=== PATIENT | female | born 1960 | race Caucasian/White ===

== ENCOUNTER 2016-06-30 13:32 | Emergency (ER) | payer OTHER ==
[2016-06-30 13:53] VITALS: BP 133/85
[2016-06-30] MEDS ORDERED: Metoclopramide 10 MG/2 ML SDV IM ONE (14:40)
[2016-06-30] MEDS ORDERED: HYDROmorphone 1 MG/ML Syringe IM ONE (14:40)
--- NOTE | 2016-06-30 14:47 | EDM.PDOC ---
ED HPI Trauma - General Chief Complaint: Lower Extremity Injury/Pain Stated Complaint: RIGHT KNEE INJURY Time Seen by Provider: 06/30/16 14:42 Source: Reports: Patient History Limitations: Reports: No limitations - History of Present Illness INITIAL COMMENTS - FREE TEXT/NARRATIVE: 56-year-old female brought to the ED by her . She states she was walking down stairs and went to move a small toy out of the way and slipped causing a sudden severe twisting injury to her right knee. This caused her to collapse to the rest of the stairs. She states she was able to walk on it a bit for about half an hour until the pain and swelling over came her. Pain is constant and throbbing rated 10 out of 10 at this time and she is no longer able to. This fracture of her right ankle but no injury to the knee that time. He suffered no other injuries from the fall. Symptom Onset Date: 06/30/16 Symptom Onset Time: 13:00 Occurred When: this afternoon Occurred Where: home Method of Injury: fall Severity: severe Pain/Injury Location: Reports: lower extremity, right (Right knee.) Consciousness: Reports: no loss of consciousness, remembers incident, remembers coming to hosp Associated Symptoms: Reports: no other symptoms Allergies/ADRs: Allergies amoxicillin Allergy (Verified 02/16/15 12:08) Anaphylactic Shock NSAIDS (Non-Steroidal Anti-Inflamma Allergy (Verified 02/16/15 12:08) Anaphylactic Shock amoxicillin trihydrate [From Augmentin] Adverse Reaction (Verified 06/30/16 13: 53) Vomiting potassium clavulanate [From Augmentin] Adverse Reaction (Verified 02/17/15 12:32 ) Vomiting Home Medications: Ambulatory Orders Acetaminophen [Tylenol Arthritis Pain] 650 mg PO BID 05/09/14 [Confirmed ] Albuterol [Ventolin HFA] 2 puff INH Q4H PRN 05/09/14 [Confirmed 02/17/15] Budesonide/Formoterol [Symbicort 160-4.5 MCG] 2 puff IH BID 05/09/14 [Confirmed 02/17/15] Estradiol/Norethindrone Acet [Combipatch 0.05-0.14 MG] 1 each TD ASDIRECTED [Confirmed 02/17/15] Hydrochlorothiazide 1 tab PO DAILY 05/09/14 [Confirmed 02/17/15] Losartan Potassium [Cozaar] 1 tab PO DAILY 05/09/14 [Confirmed 02/17/15] Omalizumab [Xolair] 1 dose SQ ASDIRECTED 05/09/14 [Confirmed 02/17/15] [place]-3 Fatty Acids [Fish Oil] 2 cap PO DAILY 05/09/14 [Confirmed 02/17/15] Omeprazole 1 cap PO DAILY 05/09/14 [Confirmed 02/17/15] Meloxicam 15 mg PO 12 #12 tablet 06/30/16 Polyethylene Glycol 3350 [MiraLAX] 17 gm PO DAILY #1 cont 06/30/16 oxyCODONE HCl/Acetaminophen [Percocet 5-325 mg Tablet] 1 - 2 each PO Q4H PRN # 30 tablet 06/30/16 Past Medical History Other HEENT History: wears glasses Cardiovascular History: Reports: Hypertension Respiratory History: Reports: Asthma - Past Surgical History Other HEENT Surgeries/Procedures: radial keratotomy Other Musculoskeletal Surgeries/Procedures:: orif R ankle with gar chau 05/11/14 ; R toe broken 09/2014 Social & Family History - Tobacco Use Smoking Status *Q: Never Smoker Second Hand Smoke Exposure: No - Alcohol Use Days Per Week of Alcohol Use: 0 Number of Drinks Per Day: 0 Total Drinks Per Week: 0 - Recreational Drug Use Recreational Drug Use: No Drug Use in Last 12 Months: No - Living Situation & Occupation Living situation: Reports: Occupation: employed Review of Systems - Review of Systems Review Of Systems: See Below Constitutional: Reports: no symptoms Eyes: Reports: no symptoms Ears: Reports: no symptoms Nose: Reports: no symptoms Mouth/Throat: Reports: no symptoms Respiratory: Reports: No Symptoms Cardiovascular: Reports: no symptoms GI/Abdominal: Reports: No symptoms Genitourinary: Reports: no symptoms Musculoskeletal: Reports: joint pain Skin: Reports: no symptoms (Severe pain in her right knee. Please see history of present illness) Neurological: Reports: No Symptoms Trauma Exam - Physical Exam Exam: See Below Exam Limited By: No limitations General Appearance: Reports: alert, moderate distress (In obvious pain and discomfort from right knee injury.) Head: Reports: atraumatic, normocephalic Neck: Reports: non-tender, full range of motion, normal alignment, normal inspection Cardiovascular: Reports: normal peripheral pulses, regular rate, rhythm, no edema, no gallop, no JVD, no murmur GI/Abdominal: Reports: normal bowel sounds, soft, non tender, no organomegaly Back: Reports: full range of motion, non-tender. Denies: CVA tenderness (R), CVA tenderness (L) Extremities: Reports: no evidence of injury, other (Patient has obvious swelling of her right knee particularly in the previous suprapatellar recess. It is a traumatic effusion evident mild to moderate. Marked tenderness along the lateral joint line and tenderness along the superior aspect of the mediocollateral ligament insertion site. She is able to straighten the leg and I cannot find a defect in the quadriceps tendon. 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, no motor/sensory deficits, alert , normal mood/affect ( limited by severe pain.) Skin: Reports: Normal color, Warm/dry - [place] Coma Score Best Eye Response (Ana Lilia): (4) open spontaneously Best Verbal Response ([place]): (5) oriented Best Motor Response ([place]): (6) obeys commands [place] Total: 15 Course - Vital Signs Last Recorded V/S: Last Vital Signs Temp 36.4 C 06/30/16 13:51 Pulse 90 06/30/16 13:51 Resp 18 06/30/16 13:51 BP 133/85 06/30/16 13:51 Pulse Ox 100 06/30/16 13:51 - Orders/Labs/Meds Orders: Active Orders 24 hr Category Date Time Status Knee Min 4V Rt [CR] Stat Exams 06/30/16 14:41 Taken Meds: Medications Discontinued Medications Generic Name Dose Route Start Last Admin Trade Name Freq PRN Reason Stop Dose Admin Hydromorphone HCl 1 mg 06/30/16 14:40 06/30/16 14:51 Dilaudid IM 06/30/16 14:41 1 mg ONETIME ONE Administration Metoclopramide HCl 10 mg 06/30/16 14:40 06/30/16 14:50 Reglan IM 06/30/16 14:41 10 mg ONETIME ONE Administration - Radiology Interpretation Free Text/Narrative:: A 6-year-old female with an acute injury to her right knee while walking downstairs. Violent twisting injury occurred causing her to fall with knee underneath her body weight. She was able to weight bear for short period of time after this on the right knee with a limp but over a period of half an hour the pain increased tenderness in the swelling. She currently is unable to flex it past 15 and cannot weight-bear at all. She came to the ED on crutches. Exam pain is localized to the joint line particularly laterally. Also to the superior insertion of the mediocollateral ligament. Unable to assess ligamentous laxity and the cruciates due to the severity the pain. She has a traumatic effusion with blood and fluid in the suprapatellar recess. Plan x-ray 4 view x-ray of the knee after she received IM analgesia plan is to give her 1 mg of Dilaudid and 10 mg of Reglan IM for pain relief. - Re-Assessments/Exams Free Text/Narrative Re-Assessment/Exam: 06/30/16 15:32 X-rays of the right knee did not reveal any tibial plateau fractures. There is mild medial joint degenerative changes. There is a small piece of bone off the lateral aspect of the femoral condyle of unclear etiology but it appears to be old. No evidence of quadriceps tendon tear on this x-ray. There is a small effusion in the suprapatelar recess. She has therefore suffered an internal derangement to the knee and at this time I cannot ascertain whether it's cruciate ligaments, medial meniscal or both. To painful to examine. Plan is to be placed in a long knee immobilizer . Be nonweightbearing crutch walking until she can follow up with Dr Gonzalez in clinic in a week to 10 days time. She will be placed on meloxicam 15 mg once daily for 10 days. Percocet 5 320 5M tablets every 24-6 hours needed for pain relief. Elevate and ice for the next 3 days. Departure - Departure Time of Disposition: 15:42 Disposition: Home, Self-Care 01 Condition: fair Clinical Impression: Internal derangement of right knee Prescriptions: Meloxicam 15 mg PO 12 #12 tablet Polyethylene Glycol 3350 [MiraLAX] 17 gm PO DAILY #1 cont oxyCODONE HCl/Acetaminophen [Percocet 5-325 mg Tablet] 1 - 2 each PO Q4H PRN # 30 tablet PRN Reason: pain relief. Instructions: Knee Effusion, [id number] Referrals: Rafal Wilkerson MD [Primary Care Provider] - Forms: ED Department Discharge, Return to Work/School Form Additional Instructions: Evaluation in the emergency room today in regards to acute injury to her right knee while walking downstairs today. Violent twisting injury appears to occur to the right knee causing her to fall. The knee is showing evidence of traumatic effusion or blood within the knee. X-rays of the knee did not reveal any bony fractures. Therefore internal derangement has occurred such as tear of the anterior posterior cruciate ligament and possibly the medial meniscus as well. He is too swollen and painful to examine properly at this time. Treatment is therefore of a long knee immobilize. Often moreover clothing and at nighttime as well as during the day. Nonweightbearing crutch walking until reviewed with Dr. Montiel in 7-10 days time. Please call [phone] on Saturday to arrange a follow up appointment. He was not able to work until the swelling settles down and you're able to bear weight. This will be a minimum of 10 days. I then MRI can be carried out in identify internal damage to the knee and with her nonsurgical management is required. In the meantime like to be elevated above the level heart as much possible. Ice pack across the knee for one half hour out of every 4 hours for the next 3 days. After that may apply heat to the area. Pain management to be meloxicam 15 mg once daily for the next 12 days. Percocet tabs 5 /325 one or 2 every 4-6 hours needed for pain relief. Suggest use of MiraLax powder 17 g one scoop daily to prevent constipation from the pain pills. - My Orders Last 24 Hours: My Active Orders 06/30/16 14:41 Knee Min 4V Rt [CR] Stat - Assessment/Plan Last 24 Hours: My Active Orders 06/30/16 14:41 Knee Min 4V Rt [CR] Stat
--- NOTE | 2016-07-02 07:59 | CR ---
Right knee: Four views of the right knee were obtained. Comparison: No previous study. Mild medial joint space narrowing is seen. Lateral joint space is preserved. No joint effusion is seen. No acute fracture or other abnormality is appreciated. Impression: 1. Mild medial joint space narrowing. 2. No acute bony abnormality is identified on right knee exam. Diagnostic code #2
== END 2016-06-30 16:00 | disposition home or self-care (01) ==
LOC: JD.ED 13:32
DX: M23.91 Unspecified internal derangement of right knee (principal); I10 Essential (primary) hypertension; J45.909 Unspecified asthma, uncomplicated; Z88.1 Allergy status to other antibiotic agents; Z88.8 Allergy status to other drugs, medicaments and biological substances; W01.0XXA Fall on same level from slipping, tripping and stumbling without subsequent striking against object, initial encounter; Y92.009 Unspecified place in unspecified non-institutional (private) residence as the place of occurrence of the external cause
CPT/HCPCS: 73564; 96372; 99283; J1170; J2765; 99284

== ENCOUNTER 2017-01-23 20:03 | Emergency (ER) | payer OTHER ==
[2017-01-23 20:14] VITALS: BP 150/79
[2017-01-23] MEDS ORDERED: HYDROmorphone 0.5 MG/0.5 ML Syringe IVPUSH ONE ×3 (20:39→21:46)
[2017-01-23] MEDS ORDERED: Sodium Chloride 0.9% 10 ML Syringe FLUSH PRN (20:39)
[2017-01-23] MEDS ORDERED: Ondansetron 4 MG/2 ML SDV IVPUSH ONE (20:39)
[2017-01-23] MEDS ORDERED: Sodium Chloride 0.9% 1,000 ML IV SCH ×2 (20:45→21:45)
--- NOTE | 2017-01-23 21:04 | EDM.PDOC ---
ED HPI GENERAL MEDICAL PROBLEM - General Chief Complaint: Abdominal Pain Stated Complaint: ABDOMINAL PAIN Time Seen by Provider: 01/23/17 20:14 Source of Information: Reports: Patient, RN Notes Reviewed - History of Present Illness INITIAL COMMENTS - FREE TEXT/NARRATIVE: 56-year-old lady comes in with fairly sudden onset of upper mid abdominal pain, cramping, diarrhea, nausea and vomiting. SHe has had multiple episodes of diarrhea this afternoon and multiple episodes of repetitive vomiting. She is still having quite severe abdominal cramping at this time. After vomiting the discomfort lessens and with time becomes more severe. She has been having chills today, no definite fever. Occasional mild radiation of discomfort to her back. She had some very mild nausea this past morning. No symptoms yesterday or during the night. She had chicken wings last evening along with her . He has had no sign of illness. Epigastric Pain Score (Numeric/FACES): 8 - Related Data Allergies Allergy/AdvReac Type Severity Reaction Status Date / Time amoxicillin Allergy Anaphylactic Verified 01/23/17 20:14 Shock NSAIDS (Non-Steroidal Allergy Anaphylactic Verified 01/23/17 20:14 Anti-Inflamma Shock amoxicillin trihydrate AdvReac Vomiting Verified 01/23/17 20:14 [From Augmentin] potassium clavulanate AdvReac Vomiting Verified 01/23/17 20:14 [From Augmentin] Home Meds: Home Meds Acetaminophen 500 mg PO Q6H PRN 01/23/17 [History] Cetirizine [ZyrTEC] 10 mg PO DAILY 01/23/17 [History] Estradiol/Norethindrone Acet [Combipatch 0.05-0.14 MG] 1 each TD ASDIRECTED 03/01 [History] Hydrochlorothiazide 12.5 mg PO DAILY 01/23/17 [History] Losartan [Cozaar] 50 mg PO DAILY 01/23/17 [History] Omeprazole 20 mg PO BIDAC 01/23/17 [History] Potassium Chloride 10 meq PO DAILY #30 tablet.er 01/24/17 [Rx] Past Medical History Other HEENT History: wears glasses Cardiovascular History: Reports: Hypertension Respiratory History: Reports: Asthma Gastrointestinal History: Reports: GERD Genitourinary History: Reports: Renal Calculus 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 , , 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 Musculoskeletal History: Reports: Other (See Below) Other Musculoskeletal History: chronic knee pain - Past Surgical History Other HEENT Surgeries/Procedures: radial keratotomy Respiratory Surgical History: Reports: None Female Surgical History: Reports: Tubal Ligation Musculoskeletal Surgical History: Reports: Other (See Below) Other Musculoskeletal Surgeries/Procedures:: orif R ankle with gar chau 05/11/14 ; R toe broken 09/2014 Social & Family History - Tobacco Use Smoking Status *Q: Never Smoker Second Hand Smoke Exposure: No - Caffeine Use Caffeine Use: Reports: None - Alcohol Use Days Per Week of Alcohol Use: 0 Number of Drinks Per Day: 0 Total Drinks Per Week: 0 - Recreational Drug Use Recreational Drug Use: No Drug Use in Last 12 Months: No - Living Situation & Occupation Living situation: Reports: Occupation: Employed ED ROS GENERAL - Review of Systems Review Of Systems: See Below Constitutional: Denies: Fever, Chills, Diaphoresis Respiratory: Denies: Shortness of Breath, Pleuritic Chest Pain, Cough Cardiovascular: Denies: Chest Pain GI/Abdominal: Reports: Abdominal Pain (Quite severe upper and mid abdominal cramping), Diarrhea (About 8 episodes of diarrhea this past afternoon and early evening), Nausea ( with some radiation of discomfort to her back), Vomiting ( severe repetitive ) Musculoskeletal: Reports: Other (Generalized achiness) Skin: Denies: Rash Neurological: Reports: Dizziness (Moderate). Denies: Numbness, Tingling, Trouble Speaking ED EXAM, GI/ABD - Physical Exam Exam: See Below General Appearance: Alert, Moderate Distress Eyes: Bilateral: Normal Appearance Throat/Mouth: Normal Inspection, Normal Oropharynx Head: Atraumatic. No: Facial Swelling Neck: Supple, Full Range of Motion Respiratory/Chest: No Respiratory Distress, Lungs Clear, Normal Breath Sounds Cardiovascular: Regular Rate, Rhythm GI/Abdominal Exam: Tender (Moderate tenderness upper mid abdomen moderate periumbilical tenderness mild diffuse tenderness remainder of abdomen). No: Guarding, Rebound Back Exam: No: CVA Tenderness (L), CVA Tenderness (R) Extremities: Normal Inspection Neurological: Alert, Oriented, No Motor/Sensory Deficits Skin Exam: Warm, Dry, Normal Color Course - Vital Signs Last Recorded V/S: Last Vital Signs Temp 98.4 F 01/23/17 20:11 Pulse 100 01/23/17 20:11 Resp 18 01/23/17 20:11 BP 150/79 H 01/23/17 20:11 Pulse Ox 100 01/23/17 20:11 - Orders/Labs/Meds Orders: Active Orders 24 hr Category Date Time Status Peripheral IV Care [RC] . DIRECTED Care 01/23/17 20:39 Active Peripheral IV Insertion Adult [OM.PC] Stat Oth 01/23/17 20:39 Ordered Labs: Laboratory Tests 01/23/17 01/23/17 Range/Units 20:18 20:18 WBC 7.73 (3.98-10.04) K/mm3 RBC 4.92 (3.98-5.22) M/mm3 Hgb 13.4 (11.2-15.7) gm/L Hct 40.8 (34.1-44.9) % MCV 82.9 (79.4-94.8) fl MCH 27.2 (25.6-32.2) pg MCHC 32.8 (32.2-35.5) g/dl RDW Std Deviation 41.3 (36.4-46.3) fL Plt Count 249 (182-369) K/mm3 MPV 9.0 L (9.4-12.3) fl Neut % (Auto) 91.0 H (34.0-71.1) % Lymph % (Auto) 6.1 L (19.3-51.7) % [place] % (Auto) 2.7 L (4.7-12.5) % Eos % (Auto) 0 L (0.7-5.8) Baso % (Auto) 0.1 (0.1-1.2) % Neut # (Auto) 7.03 H (1.56-6.13) K/mm3 Lymph # (Auto) 0.47 L (1.18-3.74) K/mm3 [place] # (Auto) 0.21 L (0.24-0.36) K/mm3 Eos # (Auto) 0.00 L (0.04-0.36) K/mm3 Baso # (Auto) 0.01 (0.01-0.08) K/mm3 Manual Slide Review Abnormal smear Sodium 142 (136-145) mEq/L Potassium 2.9 L (3.5-5.1) mEq/L Chloride 102 (98-107) mEq/L Carbon Dioxide 27 (21-32) mEq/L Anion Gap 15.9 H (5-15) BUN 19 H (7-18) mg/dL Creatinine 1.0 (0.55-1.02) mg/dL Est Cr Clr Drug Dosing 60.36 mL/min Estimated GFR (MDRD) 57 (>60) mL/min BUN/Creatinine Ratio 19.0 H (14-18) Glucose 113 H (74-106) mg/dL Calcium 9.1 (8.5-10.1) mg/dL Total Bilirubin 0.5 (0.2-1.0) mg/dL AST 18 (15-37) U/L ALT 25 (14-59) U/L Alkaline Phosphatase 87 (46-116) U/L Total Protein 8.3 H (6.4-8.2) g/dl Albumin 3.9 (3.4-5.0) g/dl Globulin 4.4 gm/dL Albumin/Globulin Ratio 0.9 L (1-2) Lipase 95 (73-393) U/L Meds: Medications Discontinued Medications Generic Name Dose Route Start Last Admin Trade Name Freq PRN Reason Stop Dose Admin Hydromorphone HCl 0.5 mg 01/23/17 20:39 01/23/17 20:46 Dilaudid IVPUSH 01/23/17 20:40 0.5 mg ONETIME ONE Administration Hydromorphone HCl 0.5 mg 01/23/17 21:15 01/23/17 21:18 Dilaudid IVPUSH 01/23/17 21:16 0.5 mg ONETIME ONE Administration Hydromorphone HCl 0.5 mg 01/23/17 21:46 01/23/17 21:55 Dilaudid IVPUSH 01/23/17 21:47 0.5 mg ONETIME ONE Administration Hydromorphone HCl 0.5 mg 01/24/17 00:07 01/24/17 00:19 Dilaudid IVPUSH 01/24/17 00:08 0.5 mg ONETIME ONE Administration Sodium Chloride 1,000 mls @ 999 mls/hr 01/23/17 20:45 01/23/17 20:44 Normal Saline IV 999 mls/hr ONETIME LUCA Administration Potassium Chloride 10 meq/ 100 mls @ 50 mls/hr 01/23/17 21:45 01/23/17 21:57 Premix IV 01/23/17 23:44 50 mls/hr ASDIRECTED ONE Administration Sodium Chloride 1,000 mls @ 500 mls/hr 01/23/17 21:45 01/23/17 21:53 Normal Saline IV 500 mls/hr ASDIRECTED LUCA Administration Metoclopramide HCl 5 mg 01/23/17 21:46 01/23/17 21:53 Reglan IVPUSH 01/23/17 21:47 5 mg ONETIME ONE Administration Ondansetron HCl 4 mg 01/23/17 20:39 01/23/17 20:45 Zofran IVPUSH 01/23/17 20:40 4 mg ONETIME ONE Administration Sodium Chloride 10 ml 01/23/17 20:39 01/23/17 20:47 Saline Flush FLUSH 10 ml ASDIRECTED PRN Administration Keep Vein Open - Re-Assessments/Exams Free Text/Narrative Re-Assessment/Exam: 01/23/17 21:35. Have given 1 liter NS, labs did show early dehydration, also hypokalemia, 2.9. Will give 1 further liter NS, 10 meq KCL, continue to work with IV meds for pain, cramping and nausea. 01/24/17 01:00. We did give a total of 2 L of fluid, feeling quite a lot better at time of discharge, discharge instructions as documented Departure - Departure Time of Disposition: 00:12 Disposition: Home, Self-Care 01 Condition: Fair Clinical Impression: Abdominal pain Qualifiers: Abdominal location: upper abdomen, unspecified Qualified Code(s): R10.10 - Upper abdominal pain, unspecified Diarrhea Qualifiers: Diarrhea type: unspecified type Qualified Code(s): R19.7 - Diarrhea, unspecified Vomiting Qualifiers: Vomiting type: unspecified Vomiting Intractability: non-intractable - Discharge Information Prescriptions: Potassium Chloride 10 meq PO DAILY #30 tablet.er Instructions: Diarrhea, Adult, Abdominal Pain, Adult, [id number] Referrals: Rafal Wilkerson MD [Primary Care Provider] - Forms: ED Department Discharge Additional Instructions: Clear liquids only until this afternoon, than very careful bland diet as tolerated, probiotic twice daily, follow-up clinic if not much better within 1- 2 days as expected, your potassium was very low at 2.9. bananas and potatoes as well as other fruit and vegetables are good sources of potassium. Hold your hydrochlorothiazide until next Saturday as discussed, (oral potassium as prescribed in 2-3 days once symptoms have totally resolved. Return to ED if symptoms worsening in any way. - My Orders Last 24 Hours: My Active Orders 01/23/17 20:39 Peripheral IV Care [RC] . DIRECTED Peripheral IV Insertion Adult [OM.PC] Stat - Assessment/Plan Last 24 Hours: My Active Orders 01/23/17 20:39 Peripheral IV Care [RC] . DIRECTED Peripheral IV Insertion Adult [OM.PC] Stat
[2017-01-23] MEDS ORDERED: Potassium Chloride 10 MEQ in Premix Bag 1 BAG IV ONE (21:45)
[2017-01-23] MEDS ORDERED: Metoclopramide 10 MG/2 ML SDV IVPUSH ONE (21:46)
[2017-01-24] MEDS ORDERED: HYDROmorphone 0.5 MG/0.5 ML Syringe IVPUSH ONE (00:07)
== END 2017-01-24 00:40 | disposition home or self-care (01) ==
LOC: JD.ED 20:03
DX: R10.10 Upper abdominal pain, unspecified (principal); R19.7 Diarrhea, unspecified; R11.2 Nausea with vomiting, unspecified; I10 Essential (primary) hypertension; J45.909 Unspecified asthma, uncomplicated; K21.9 Gastro-esophageal reflux disease without esophagitis; Z88.1 Allergy status to other antibiotic agents; Z88.8 Allergy status to other drugs, medicaments and biological substances; Z79.899 Other long term (current) drug therapy; Z87.442 Personal history of urinary calculi
CPT/HCPCS: 36415; 80053; 83690; 85025; 96361; 96365; 96366; 96375; 96376; 99284; J1170; J2405; J2765; J3480; J7040; J7050

== ENCOUNTER 2019-10-26 06:54 | Inpatient (IN) | payer OTHER ==
[~2019-10-26 06:54] MED LIST: Acetaminophen 325 MG Tab PO SCH; Bisacodyl 5 MG Tab PO PRN; Dexamethasone 4 MG/ML 5 ML MDV ONE; Famotidine 20 MG Tab PO SCH; Ketamine 500 mg/10 ML MDV ONE; Lidocaine 1% 0 ML ONE; Magnesium Hydroxide 400 MG/5 ML Susp 30 ML Cup PO PRN; Midazolam 1 MG/ML 2 ML SDV ONE; Naloxone 0.4 MG/ML SDV IVPUSH PRN; Ondansetron 4 MG/2 ML SDV IVPUSH PRN; Pregabalin 25 MG Cap PO SCH; Propofol 200 MG/20 ML SDV ONE; Sennosides 8.6 MG Tab PO PRN; fentaNYL 100 MCG/2 ML SDV ONE; oxyCODONE ER 10 MG TAB.ER PO SCH
[2019-10-26] MEDS ORDERED: ceFAZolin 1 GM Vial ONE ×3 (06:57→07:13)
[2019-10-26] MEDS ORDERED: Lidocaine 1%/Sod Bicarbonate in NS 8.4% 1 ML Syringe IDERM PRN (07:00)
[2019-10-26] MEDS ORDERED: Sodium Chloride 0.9% 10 ML Syringe FLUSH PRN (07:00)
[2019-10-26] MEDS ORDERED: Lactated Ringers 1,000 ML IV SCH (07:00)
[2019-10-26] MEDS ORDERED: Propofol 200 MG/20 ML SDV ONE (07:05)
[2019-10-26] MEDS ORDERED: Midazolam 1 MG/ML 2 ML SDV ONE (07:05)
[2019-10-26] MEDS ORDERED: Lidocaine 1% 4 ML ONE ×2 (07:05→10:09)
[2019-10-26] MEDS ORDERED: EPINEPHrine 1 MG/1 ML Amp ONE (07:10)
[2019-10-26] MEDS ORDERED: Iodine/Sodium Iodide 2% Tincture 30 ML Bottle ONE (07:12)
[2019-10-26] MEDS ORDERED: Bupivacaine 0.25% 10 ML SDV ONE ×2 (07:12→07:27)
[2019-10-26] MEDS ORDERED: Vancomycin 1 GM SDV ONE (07:12)
--- NOTE | 2019-10-26 07:15 | PCM.CONS ---
H&P History of Present Illness - General Date of Service: 10/26/19 Admit Problem/Dx: Admission Diagnosis/Problem Admission Diagnosis/Problem Osteoarthritis of knee Source of Information: Patient, Old Records, Provider, RN, RN Notes Reviewed History Limitations: Reports: No Limitations - History of Present Illness Initial Comments - Free Text/Narative: Elyse Mathew is a 59 yo female patient of Dr. Gonzalez who is post-operative day 0 of left TKA. Hospital medicine was consulted for post-operative medical care of the following listed medical conditions. At this time she is resting in bed. Pain is mostly controlled. She is quite sleepy. She denies any chest pain, shortness of breath, palpitations, nausea, or vomiting. She carries a history of: HTN, Hypokalemia, Anemia, Asthma, GERD, Microhematuria, HLD, TMJ arthralgia, Eustachian tube dysfunction, Varicose veins, Osteopenia. She was never a smoker. She is a full code. Her primary care provider is Dr. Wilkerson. - Related Data Allergies/Adverse Reactions: Allergies Allergy/AdvReac Type Severity Reaction Status Date / Time amoxicillin Allergy Vomiting Verified 10/26/19 11:38 NSAIDS (Non-Steroidal Allergy Anaphylactic Verified 10/26/19 11:38 Anti-Inflamma Shock amoxicillin trihydrate AdvReac Vomiting Verified 10/26/19 11:38 [From Augmentin] potassium clavulanate AdvReac Vomiting Verified 10/26/19 11:38 [From Augmentin] Home Medications: Home Meds Hydrochlorothiazide 12.5 mg PO DAILY 01/23/17 [History] Losartan [Cozaar] 50 mg PO DAILY 01/23/17 [History] Omeprazole 20 mg PO DAILY 01/23/17 [History] Cholecalciferol (Vitamin D3) [Vitamin D] 5,000 units PO DAILY 03/27/18 [History] Cetirizine [ZyrTEC] 10 mg PO DAILY PRN 10/23/19 [History] Cyclobenzaprine [Flexeril] 10 mg PO BEDTIME PRN 10/23/19 [History] Fish Oil/[place]-3 Fatty Acids [Fish Oil 1,000 MG] 1 gm PO DAILY 10/23/19 [History] traMADol [Ultram] 50 mg PO BEDTIME PRN 10/23/19 [History] Vitamin B Complex 1 tab PO DAILY 10/26/19 [History] Past Medical History HEENT History: Reports: Allergic Rhinitis, Otitis Media, Other (See Below) Other HEENT History: wears glasses, TMJ arthralgia, eustachian tube dysfunction Cardiovascular History: Reports: High Cholesterol, Hypertension, Other (See Below) Other Cardiovascular History: varicose veins, chest pain Respiratory History: Reports: Asthma Gastrointestinal History: Reports: GERD Genitourinary History: Reports: Renal Calculus, Other (See Below) Other Genitourinary History: hematuria 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: Ectopic , , Spontaneous Other OB/BYN History: Bilateral breast reduction Musculoskeletal History: Reports: Other (See Below) Other Musculoskeletal History: calcaneal spur, plantar fascial fibromatosis, rotator cuff syndrome, foot/ankle tenosynovitis Neurological History: Reports: Other (See Below) Other Neuro History: Bulging 5 and 6 discs Psychiatric History: Reports: None Endocrine/Metabolic History: Reports: Osteopenia Hematologic History: Reports: Anemia Immunologic History: Reports: None Oncologic (Cancer) History: Reports: None Dermatologic History: Reports: Other (See Below) Other Dermatologic History: actinic keratosis, skin neoplasm, nevus, viral warts, soft tissue excision - Infectious Disease History Infectious Disease History: Reports: None - Past Surgical History Head Surgeries/Procedures: Reports: None Other HEENT Surgeries/Procedures: radial keratotomy Cardiovascular Surgical History: Reports: None Respiratory Surgical History: Reports: None GI Surgical History: Reports: Colonoscopy Female Surgical History: Reports: Breast Reduction, Tubal Ligation Male Surgical History: Reports: None Endocrine Surgical History: Reports: None Neurological Surgical History: Reports: None Musculoskeletal Surgical History: Reports: Shoulder Surgery, Other (See Below) Other Musculoskeletal Surgeries/Procedures:: orif R ankle with gar chau 05/11/14; R toe broken 09/2014. carpal tunnel bilateral wrist 2001. Right Shoulder replacement 03/2018. Rotator tear surgery right shoulder - 2008 Oncologic Surgical History: Reports: None Dermatological Surgical History: Reports: None Social & Family History - Family History Oncologic: Reports: Leukemia, Lung - Tobacco Use Smoking Status *Q: Never Smoker Second Hand Smoke Exposure: No - Caffeine Use Caffeine Use: Reports: None - Recreational Drug Use Recreational Drug Use: No - Living Situation & Occupation Living situation: Reports: Occupation: Employed H&P Review of Systems - Review of Systems: Review Of Systems: See Below General: Reports: No Symptoms. Denies: Fever, Chills HEENT: Reports: No Symptoms. Denies: Headaches, Sore Throat Pulmonary: Reports: No Symptoms. Denies: Shortness of Breath, Wheezing, Pleuritic Chest Pain, Cough, Sputum Cardiovascular: Reports: No Symptoms. Denies: Chest Pain, Palpitations, Dyspnea on Exertion Gastrointestinal: Reports: Nausea (occasional mild). Denies: Abdominal Pain, Constipation, Diarrhea, Vomiting Genitourinary: Reports: No Symptoms. Denies: Pain Musculoskeletal: Reports: Leg Pain Skin: Reports: No Symptoms. Denies: Cyanosis Psychiatric: Reports: No Symptoms. Denies: Confusion Neurological: Reports: Numbness, Tingling, Difficulty Walking, Gait Disturbance Hematologic/Lymphatic: Reports: No Symptoms Immunologic: Reports: No Symptoms Exam - Exam Exam: See Below - Exam Quality Assessment: DVT Prophylaxis General: Alert, Oriented, Cooperative, Other (sleepy). No: Mild Distress HEENT: Conjunctiva Clear, EACs Clear, Mucosa Moist & [place], Posterior Pharynx Clear Neck: Supple, Trachea Midline Lungs: Clear to Auscultation, Normal Respiratory Effort Cardiovascular: Regular Rate, Regular Rhythm GI/Abdominal Exam: Normal Bowel Sounds, Soft, Non-Tender, No Distention (Female) Exam: Deferred Rectal (Female) Exam: Deferred Extremities: Normal Capillary Refill, Leg Pain, Limited Range of Motion, Other (Bandage in place on left leg. Bandage is dry and intact. Cooling pack in place ) Peripheral Pulses: 2+: Radial (L), Radial (R), Dorsalis Pedis (L), Dorsalis Pedis (R) Skin: Warm, Dry, Intact Neurological: Cranial Nerves Intact (Grossly ) Neuro Extensive - Mental Status: Alert, Oriented x3, Normal Mood/Affect Sepsis Event Note - Focused Exam Date Exam was Performed: 10/26/19 Time Exam was Performed: 16:32 Consult PN Assessment/Plan POD#: 0 Procedures: Procedures APPLICATION LOWER LEG SPLINT (05/09/14) ASSAY OF LIPASE (01/23/17) ASSAY OF PREALBUMIN (03/24/18) ASSAY OF SERUM ALBUMIN (03/24/18) COMP SCREEN MAMMOGRAM ADD-ON (01/04/16) COMPLETE CBC W/AUTO DIFF WBC (03/24/18) COMPREHEN METABOLIC PANEL (01/23/17) CULTURE OTHR SPECIMN AEROBIC (12/07/14) DXA BONE DENSITY AXIAL (03/26/18) EMERGENCY DEPT VISIT (01/23/17) EMERGENCY DEPT VISIT (06/30/16) EMERGENCY DEPT VISIT (07/15/13) FLUOROSCOPY <1 HR PHYS/QHP (05/11/14) HYDRATE IV INFUSION ADD-ON (01/23/17) HYDRATION IV INFUSION INIT (07/15/13) MEASURE BLOOD OXYGEN LEVEL (07/15/13) METABOLIC PANEL TOTAL CA (03/24/18) MR-STAPH DNA AMP PROBE (02/14/15) MRI BRAIN STEM W/O & W/DYE (09/28/13) MRI JNT OF LWR EXTRE W/O DYE (07/01/18) MRI JOINT UPR EXTREM W/O DYE (01/16/18) MRI NECK SPINE W/O DYE (01/16/18) PROTHROMBIN TIME (03/24/18) REMOVAL OF SUPPORT IMPLANT (02/17/15) ROUTINE VENIPUNCTURE (03/24/18) THER/PROPH/DIAG INJ IV PUSH (05/09/14) THER/PROPH/DIAG INJ SC/IM (06/30/16) THER/PROPH/DIAG IV INF ADDON (01/23/17) THER/PROPH/DIAG IV INF INIT (01/23/17) TISSUE EXAM BY PATHOLOGIST (01/11/15) TREATMENT OF ANKLE FRACTURE (05/11/14) TX/PRO/DX INJ NEW DRUG ADDON (01/23/17) TX/PRO/DX INJ SAME 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/17) X-RAY EXAM CHEST 2 VIEWS (03/24/18) X-RAY EXAM KNEE 4 OR MORE (06/30/16) X-RAY EXAM OF ANKLE (03/23/15) X-RAY EXAM OF ANKLE (11/24/14) X-RAY EXAM OF ANKLE (07/14/14) X-RAY EXAM OF ANKLE (06/02/14) X-RAY EXAM OF ANKLE (05/09/14) X-RAY EXAM OF LOWER LEG (05/09/14) (1) S/P total knee arthroplasty SNOMED Code(s): 9460492034660, 182063598, 0326158495157 Code(s): Z96.659 - PRESENCE OF UNSPECIFIED ARTIFICIAL KNEE JOINT Priority: High Current Visit: Yes Qualifiers: Laterality: left Qualified Code(s): Z96.652 - Presence of left artificial knee joint (2) Hypokalemia SNOMED Code(s): 72961860 Code(s): E87.6 - HYPOKALEMIA Priority: Low Current Visit: No (3) Anemia SNOMED Code(s): 839390944 Code(s): D64.9 - ANEMIA, UNSPECIFIED Priority: Low Current Visit: No Qualifiers: Anemia type: unspecified type Qualified Code(s): D64.9 - Anemia, unspecified (4) Microhematuria SNOMED Code(s): 873632820 Code(s): R31.29 - OTHER MICROSCOPIC HEMATURIA Priority: Low Current Visit: No (5) HLD (hyperlipidemia) SNOMED Code(s): 89313551 Code(s): E78.5 - HYPERLIPIDEMIA, UNSPECIFIED Priority: Low Current Visit: No Qualifiers: Hyperlipidemia type: unspecified Qualified Code(s): E78.5 - Hyperlipidemia, unspecified (6) Eustachian tube dysfunction SNOMED Code(s): 87810563 Code(s): H69.80 - OTH DISRD OF EUSTACHIAN TUBE, UNSPECIFIED EAR Priority: Low Current Visit: No Qualifiers: Laterality: unspecified laterality Qualified Code(s): H69.80 - Other specified disorders of Eustachian tube, unspecified ear (7) Osteopenia SNOMED Code(s): 789611238 Code(s): M85.80 - OTH DISRD OF BONE DENSITY AND STRUCTURE, UNSPECIFIED SITE Priority: Medium Current Visit: No Qualifiers: Osteopenia location: unspecified Qualified Code(s): M85.80 - Other specified disorders of bone density and structure, unspecified site (8) Varicose vein of leg SNOMED Code(s): 88684325 Code(s): I83.90 - ASYMPTOMATIC VARICOSE VEINS OF UNSPECIFIED LOWER EXTREMITY Priority: Low Current Visit: No Qualifiers: Varicose vein complication: unspecified Laterality: unspecified laterality Qualified Code(s): I83.90 - Asymptomatic varicose veins of unspecified lower extremity (9) TMJ arthralgia SNOMED Code(s): 38953872, 136068553 Code(s): M26.629 - ARTHRALGIA OF TEMPOROMANDIBULAR JOINT, UNSPECIFIED SIDE Priority: Low Current Visit: No Qualifiers: Laterality: unspecified laterality Qualified Code(s): M26.629 - Arthralgia of temporomandibular joint, unspecified side (10) Asthma SNOMED Code(s): 208917842 Code(s): J45.909 - UNSPECIFIED ASTHMA, UNCOMPLICATED Priority: Medium Current Visit: No Qualifiers: Asthma severity: unspecified severity Asthma persistence: unspecified Asthma complication type: unspecified Qualified Code(s): J45.909 - Unspecified asthma, uncomplicated (11) GERD (gastroesophageal reflux disease) SNOMED Code(s): 699814942 Code(s): K21.9 - GASTRO-ESOPHAGEAL REFLUX DISEASE WITHOUT ESOPHAGITIS Priority: Medium Current Visit: No Qualifiers: Esophagitis presence: esophagitis presence not specified Qualified Code(s): K21.9 - Gastro-esophageal reflux disease without esophagitis (12) HTN (hypertension) SNOMED Code(s): 46287082 Code(s): I10 - ESSENTIAL (PRIMARY) HYPERTENSION Priority: Medium Current Visit: No Qualifiers: Hypertension type: unspecified Qualified Code(s): I10 - Essential (primary) hypertension (13) Osteoarthritis SNOMED Code(s): 083818161 Code(s): M19.90 - UNSPECIFIED OSTEOARTHRITIS, UNSPECIFIED SITE Priority: High Current Visit: Yes Qualifiers: Osteoarthritis location: knee Osteoarthritis type: primary Laterality: left Qualified Code(s): M17.12 - Unilateral primary osteoarthritis, left knee Problem List Initiated/Reviewed/Updated: Yes Plan: I/P: Acute: S/P left total knee arthroplasty - post-operative day 0 -DVT prophylaxis and pain management per primary care team -PT/OT -IS/RT -Monitor oxygen saturation -Titrate oxygen as needed -Home medications reviewed -Vital signs stable -Monitor labs -Pre-operative Hgb was 14.0 -Pre-operative GFR was 70 -Pre-operative potassium was 3.4 -Pre-operative 12-lead EKG showed a sinus rhythm at 69 BPM Osteoarthritis of left knee -Pain management per primary care team Chronic: HTN Hypokalemia Anemia Asthma GERD Microhematuria HLD TMJ arthralgia Eustachian tube dysfunction Varicose veins Osteopenia Plan: CM for discharge planning GI prophylaxis Home medications as indicated Other orders as listed above Routine AM labs She is a full code. Her PCP is Dr. Wilkerson Thank you for allowing us to participate in the care of this patient!! Requesting Provider: Dr. Gonzalez Date Consult Requested: 10/26/19 Patient History Reviewed: Yes Admission H&P Reviewed: Yes Notified Requestor: Yes
[2019-10-26] MEDS ORDERED: Triamcinolone Acetonide 40 MG/ML 1 ML MDV ONE (07:27)
--- NOTE | 2019-10-26 07:40 | PCM.PREANE ---
Preanesthetic Assessment - Anesthesia/Transfusion/Family Hx Anesthesia History: Prior Anesthesia Without Reaction Transfusion History: No Prior Transfusion(s) - Review of Systems General: No Symptoms Pulmonary: No Symptoms Cardiovascular: No Symptoms Gastrointestinal: No Symptoms Neurological: No Symptoms Other: Reports: None - Physical Assessment Vital Signs: Last Vital Signs Temp 97.0 F 10/26/19 07:05 Pulse 71 10/26/19 07:05 Resp 16 10/26/19 07:05 BP 134/84 10/26/19 07:05 Pulse Ox 96 10/26/19 07:05 ASA Class: 2 Mental Status: Alert & Oriented x3 Airway Class: Mallampati = 1 Dentition: Reports: Normal Dentition Thyro-Mental Finger Breadths: 2 Mouth Opening Finger Breadths: 3 ROM/Head Extension: Full Lungs: Clear to Auscultation, Normal Respiratory Effort Cardiovascular: Regular Rate, Regular Rhythm - Lab Values: Laboratory Last Values COVID-19 PCR Not detected (NOT DETECT) 10/22/19 10:03 MRSA (PCR) Negative 10/14/19 15:13 - Allergies Allergies/Adverse Reactions: Allergies Allergy/AdvReac Type Severity Reaction Status Date / Time amoxicillin Allergy Anaphylactic Verified 10/23/19 13:27 Shock NSAIDS (Non-Steroidal Allergy Anaphylactic Verified 10/23/19 13:27 Anti-Inflamma Shock amoxicillin trihydrate AdvReac Vomiting Verified 10/23/19 13:27 [From Augmentin] potassium clavulanate AdvReac Vomiting Verified 10/23/19 13:27 [From Augmentin] - Acknowledgements Anesthesia Type Planned: Spinal, Regional Block Pt an Appropriate Candidate for the Planned Anesthesia: Yes Alternatives and Risks of Anesthesia Discussed w Pt/Guardian: Yes Pt/Guardian Understands and Agrees with Anesthesia Plan: Yes PreAnesthesia Questionnaire HEENT History: Reports: Allergic Rhinitis, Otitis Media, Other (See Below) Other HEENT History: wears glasses, TMJ arthralgia, eustachian tube dysfunction Cardiovascular History: Reports: High Cholesterol, Hypertension, Other (See Below) Other Cardiovascular History: varicose veins, chest pain Respiratory History: Reports: Asthma Gastrointestinal History: Reports: GERD Genitourinary History: Reports: Renal Calculus, Other (See Below) Other Genitourinary History: hematuria 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 , , 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 Other OB/BYN History: Bilateral breast reduction Musculoskeletal History: Reports: Other (See Below) Other Musculoskeletal History: calcaneal spur, plantar fascial fibromatosis, rotator cuff syndrome, foot/ankle tenosynovitis Neurological History: Reports: Other (See Below) Other Neuro History: Bulging 5 and 6 discs Psychiatric History: Reports: None Endocrine/Metabolic History: Reports: Osteopenia Hematologic History: Reports: Anemia Immunologic History: Reports: None Oncologic (Cancer) History: Reports: None Dermatologic History: Reports: Other (See Below) Other Dermatologic History: actinic keratosis, skin neoplasm, nevus, viral warts, soft tissue excision - Infectious Disease History Infectious Disease History: Reports: None - Past Surgical History Head Surgeries/Procedures: Reports: None Other HEENT Surgeries/Procedures: radial keratotomy Cardiovascular Surgical History: Reports: None Respiratory Surgical History: Reports: None GI Surgical History: Reports: Colonoscopy Female Surgical History: Reports: Breast Reduction, Tubal Ligation Male Surgical History: Reports: None Endocrine Surgical History: Reports: None Neurological Surgical History: Reports: None Musculoskeletal Surgical History: Reports: Shoulder Surgery, Other (See Below) Other Musculoskeletal Surgeries/Procedures:: orif R ankle with gar chau 05/11/14; R toe broken 09/2014. carpal tunnel bilateral wrist 2001. Right Shoulder replacement 03/2018. Rotator tear surgery right shoulder - 2008 Oncologic Surgical History: Reports: None Dermatological Surgical History: Reports: None - SUBSTANCE USE Smoking Status *Q: Never Smoker Second Hand Smoke Exposure: No Recreational Drug Use History: No - HOME MEDS Home Medications: Home Meds Hydrochlorothiazide 12.5 mg PO DAILY 01/23/17 [History] Losartan [Cozaar] 50 mg PO DAILY 01/23/17 [History] Omeprazole 20 mg PO DAILY 01/23/17 [History] Cholecalciferol (Vitamin D3) [Vitamin D] 5,000 units PO DAILY 03/27/18 [History] Cetirizine [ZyrTEC] 10 mg PO DAILY PRN 10/23/19 [History] Cyclobenzaprine [Flexeril] 10 mg PO BEDTIME PRN 10/23/19 [History] Fish Oil/[place]-3 Fatty Acids [Fish Oil 1,000 MG] 1 gm PO DAILY 10/23/19 [History] traMADol [Ultram] 50 mg PO BEDTIME PRN 10/23/19 [History] - CURRENT (IN HOUSE) MEDS Current Meds: Current Medications Acetaminophen (Tylenol) 975 mg PO ONETIME [facility] Stop: 10/26/19 14:00 Last Admin: 10/26/19 07:23 Dose: 975 mg Documented by: Bisacodyl (Dulcolax) 5 mg PO DAILY PRN PRN Reason: Constipation Morphine Sulfate 8 mg/Epinephrine HCl 0.3 mg/Cefuroxime Sodium 750 mg/Sodium Chloride 7.9 ml 0 mg .XX ONETIME ONE Stop: 10/26/19 10:01 Cyclobenzaprine HCl (Flexeril) 10 mg PO TID PRN PRN Reason: Spasms Docusate Sodium (Colace) 100 mg PO BID [facility] Famotidine (Pepcid) 20 mg PO Q12H [facility] Lactated Ringer's (Ringers, Lactated) 1,000 mls @ 125 mls/hr IV ASDIRECTED [facility] Stop: 10/26/19 23:00 Cefazolin Sodium/Dextrose 2 gm (/ Premix) 50 mls @ 100 mls/hr IV Q8H [facility] Stop: 10/26/19 23:14 Lidocaine/Sodium Bicarbonate (Buffered Lidocaine 1% In Ns 8.4%) 0.25 ml IDERM ONETIME PRN PRN Reason: Prior to IV Start Stop: 10/26/19 18:00 Magnesium Hydroxide (Milk Of Magnesia) 30 ml PO BID PRN PRN Reason: Constipation Morphine Sulfate (Morphine) 2 mg IVPUSH Q2H PRN PRN Reason: Breakthrough Pain Naloxone HCl (Narcan) 0.1 mg IVPUSH Q5M PRN PRN Reason: Oversedation Ondansetron HCl (Zofran) 4 mg IVPUSH Q6H PRN PRN Reason: Nausea/Vomiting Oxycodone HCl (Oxycontin) 10 mg PO ONETIME [facility] Stop: 10/26/19 14:00 Last Admin: 10/26/19 07:23 Dose: 10 mg Documented by: Oxycodone/Acetaminophen (Percocet 325-5 Mg) 1 - 2 tab PO Q4H PRN PRN Reason: Pain Pregabalin (Lyrica) 50 mg PO ONETIME [facility] Stop: 10/26/19 14:00 Last Admin: 10/26/19 07:23 Dose: 50 mg Documented by: Rivaroxaban (Xarelto) 10 mg PO DAILY [facility] Senna (Senna) 8.6 mg PO BID PRN PRN Reason: Constipation Sodium Chloride (Saline Flush) 10 ml FLUSH ASDIRECTED PRN PRN Reason: Keep Vein Open Stop: 10/26/19 18:00 Discontinued Medications Bupivacaine HCl (Sensorcaine-Mpf 0.25%) Confirm Administered Dose 30 ml .ROUTE .STK-MED ONE Stop: 10/26/19 07:13 Bupivacaine HCl (Sensorcaine-Mpf 0.25%) Confirm Administered Dose 10 ml .ROUTE .STK-MED ONE Stop: 10/26/19 07:28 Cefazolin Sodium (Ancef) Confirm Administered Dose 2 gm .ROUTE .STK-MED ONE Stop: 10/26/19 06:58 Cefazolin Sodium (Ancef) Confirm Administered Dose 2 gm .ROUTE .STK-MED ONE Stop: 10/26/19 07:06 Cefazolin Sodium (Ancef) Confirm Administered Dose 2 gm .ROUTE .STK-MED ONE Stop: 10/26/19 07:14 Dexamethasone (Dexamethasone) Confirm Administered Dose 20 mg .ROUTE .STK-MED ONE Stop: 10/26/19 06:44 Epinephrine HCl (Adrenalin) Confirm Administered Dose 1 mg .ROUTE .STK-MED ONE Stop: 10/26/19 07:11 Famotidine (Pepcid) 20 mg PO Q12H [facility] Fentanyl (Sublimaze) Confirm Administered Dose 100 mcg .ROUTE .STK-MED ONE Stop: 10/26/19 06:43 Glycopyrrolate () Confirm Administered Dose 1 mg .ROUTE .STK-MED ONE Stop: 10/26/19 07:36 Lidocaine HCl (Xylocaine-Mpf 1%) Confirm Administered Dose 4 mls @ as directed .ROUTE .STK-MED ONE Stop: 10/26/19 06:44 Lidocaine HCl (Xylocaine-Mpf 1%) Confirm Administered Dose 4 mls @ as directed .ROUTE .STK-MED ONE Stop: 10/26/19 07:06 Iodine (Iodine 2% Mild Tincture) Confirm Administered Dose 30 ml .ROUTE .STK-MED ONE Stop: 10/26/19 07:13 Ketamine HCl (Ketalar) Confirm Administered Dose 500 mg .ROUTE .STK-MED ONE Stop: 10/26/19 06:44 Midazolam HCl (Versed 1 Mg/Ml) Confirm Administered Dose 2 mg .ROUTE .STK-MED ONE Stop: 10/26/19 06:44 Midazolam HCl (Versed 1 Mg/Ml) Confirm Administered Dose 2 mg .ROUTE .STK-MED ONE Stop: 10/26/19 07:06 Propofol (Diprivan 20 Ml) Confirm Administered Dose 600 mg .ROUTE .STK-MED ONE Stop: 10/26/19 06:43 Propofol (Diprivan 20 Ml) Confirm Administered Dose 400 mg .ROUTE .STK-MED ONE Stop: 10/26/19 07:06 Tranexamic Acid (Cyklokapron) Confirm Administered Dose 1,000 mg .ROUTE .STK-MED ONE Stop: 10/26/19 07:13 Triamcinolone Acetonide (Kenalog-40) Confirm Administered Dose 80 mg .ROUTE .STK-MED ONE Stop: 10/26/19 07:28 Vancomycin HCl (Vancomycin) Confirm Administered Dose 1 gm .ROUTE .STK-MED ONE Stop: 10/26/19 07:13
[2019-10-26] MEDS ORDERED: Ropivacaine 0.5% 5 MG/ML 30 ML SDV ONE (07:44)
[2019-10-26] MEDS ORDERED: fentaNYL 100 MCG/2 ML SDV IVPUSH PRN (08:32)
[2019-10-26] MEDS ORDERED: HYDROmorphone 0.5 MG/0.5 ML Syringe IVPUSH PRN (08:32)
[2019-10-26] MEDS ORDERED: Lactated Ringers 1,000 ML ONE (08:51)
[2019-10-26] MEDS ORDERED: [UNRECOGNIZED DRUG - OTHER] ONE ×4 (10:00)
[2019-10-26] MEDS ORDERED: MORPHINE SULFATE ONE ×4 (10:00)
[2019-10-26] MEDS ORDERED: EPINEPHRINE ONE ×4 (10:00)
[2019-10-26] MEDS ORDERED: CEFUROXIME ONE ×4 (10:00)
--- NOTE | 2019-10-26 10:28 | PCM.POSTAN ---
POST ANESTHESIA ASSESSMENT - MENTAL STATUS Mental Status: Alert, Oriented - VITAL SIGNS Vital Signs: Last Vital Signs Temp 97.6 F 10/26/19 09:55 Pulse 87 10/26/19 09:55 Resp 14 10/26/19 09:55 BP 105/67 10/26/19 09:55 Pulse Ox 96 10/26/19 09:55 - RESPIRATORY Respiratory Status: Respiratory Rate WNL, Airway Patent, O2 Saturation Stable, Supplemental Oxygen - CARDIOVASCULAR CV Status: Pulse Rate WNL, Blood Pressure Stable - GASTROINTESTINAL GI Status: No Symptoms - PAIN Pain Score: 0 (post SAB) - POST OP HYDRATION Hydration Status: Adequate & Stable
--- NOTE | 2019-10-26 10:45 | PCM.PRNOTE ---
- Free Text/Narrative Note: Postoperative regional pain control requested by surgeon. Pre-op Dx: Left knee osteoarthritis. Post-op Rx: Total Left knee arthroplasty. Procedure: Left Adductor canal block with U/S guidance Requesting physician: Dr. Mike Wright Risks and benefits discussed with the patient preoperatively including infection, bleeding, incomplete or failed block, possible nerve damage, local anesthetic toxicity. Permit signed. Patient after spinal anesthesia post surgery in PACU, stable , alert and awake. Time out performed. Left mid-thigh was prepped with Chloraprep x 1 and allowed to dry. Under aseptic technique, the left femoral artery and sartorius muscle were identified under ultrasound prior to needle insertion. 4" Stimuplex needle #22 [id number] was inserted under US guidance. Under direct visualization of needle tip the injection of 0.5% Ropivacaine with 1:200k epinephrine, 5cc of 1% Lidocaine and 6 mg of Dexamethasone, total of 30 mls in divided doses, maintaining negative aspiration was completed without problems. No local anesthetic toxicity was noted. Patient is awake, stable and tolerated the procedure well. Time: 10:14 - 10:21 Please see attached U/S pictures.
[2019-10-26] MEDS ORDERED: Dexamethasone 4 MG/ML 5 ML MDV ONE (10:51)
[2019-10-26] MEDS: Acetaminophen/oxyCODONE 325-5 MG Tab PO PRN ×3 (11:30→20:43)
[2019-10-26] MEDS: Morphine 2 MG/ML SYRINGE IVPUSH PRN (12:45)
[2019-10-26] MEDS ORDERED: Loratadine 10 MG Tab PO PRN (12:46)
--- NOTE | 2019-10-26 12:49 | CR ---
Left knee: AP and lateral views of the left knee were obtained. Comparison: Previous MRI left knee study of 07/01/18. Knee prosthesis is seen. Components are aligned. Soft tissue air is noted from the surgical procedure. No underlying bony abnormality is appreciated. Impression: 1. Satisfactory postop radiographic appearance of recently placed left knee prosthesis. Diagnostic code #2 Study was dictated in MDT
[2019-10-26] MEDS: ceFAZolin 2 GM in Premix Bag 1 BAG IV SCH ×2 (15:52→23:45)
[2019-10-26] MEDS: Cyclobenzaprine 10 MG Tab PO PRN (17:56)
[2019-10-26] MEDS: Docusate Sodium 100 MG Cap PO SCH (20:44)
[2019-10-26] MEDS ORDERED: Famotidine 20 MG Tab PO SCH (21:00)
[2019-10-27] MEDS: Acetaminophen/oxyCODONE 325-5 MG Tab PO PRN ×3 (00:57→11:18)
[2019-10-27] MEDS: Cyclobenzaprine 10 MG Tab PO PRN (02:53)
[2019-10-27] MEDS: ceFAZolin 2 GM in Premix Bag 1 BAG IV SCH (06:30)
--- NOTE | 2019-10-27 06:55 | PCM.SURGPN ---
- General Info Date of Service: 10/27/19 POD#: 1 Functional Status: Reports: Tolerating Diet, Ambulating, Urinating, Incentive Spirometry, Other (The pt has noted knee pain.) - Patient Data Vitals - Most Recent: Last Vital Signs Temp 98.2 F 10/27/19 05:35 Pulse 91 10/27/19 05:35 Resp 20 10/27/19 05:35 BP 150/84 H 10/27/19 05:35 Pulse Ox 97 10/27/19 05:35 Weight - Most Recent: 143 lb 8 oz I&O - Last 24 Hours: Intake & Output 10/26/19 10/26/19 10/27/19 14:59 22:59 06:59 Intake Total 325 490 500 Output Total 1100 Balance 325 490 -600 Lab Results Last 24 Hrs: Laboratory Results - last 24 hr 10/27/19 10/27/19 Range/Units 06:03 06:03 WBC 12.89 H (3.98-10.04) K/mm3 RBC 4.57 (3.98-5.22) M/mm3 Hgb 13.2 D (11.2-15.7) gm/dl Hct 40.5 (34.1-44.9) % MCV 88.6 (79.4-94.8) fl MCH 28.9 (25.6-32.2) pg MCHC 32.6 (32.2-35.5) g/dl RDW Std Deviation 47.2 H (36.4-46.3) fL Plt Count 249 (182-369) K/mm3 MPV 8.7 L (9.4-12.3) fl Sodium 134 L (136-145) mEq/L Potassium 3.8 (3.5-5.1) mEq/L Chloride 98 (98-107) mEq/L Carbon Dioxide 26 (21-32) mEq/L Anion Gap 13.8 (5-15) BUN 15 (7-18) mg/dL Creatinine 1.0 (0.55-1.02) mg/dL Est Cr Clr Drug Dosing 56.00 mL/min Estimated GFR (MDRD) 57 (>60) mL/min BUN/Creatinine Ratio 15.0 (14-18) Glucose 147 H (74-106) mg/dL Calcium 8.9 (8.5-10.1) mg/dL Total Bilirubin 0.4 (0.2-1.0) mg/dL AST 19 (15-37) U/L ALT 26 (14-59) U/L Alkaline Phosphatase 85 (46-116) U/L Total Protein 7.4 (6.4-8.2) g/dl Albumin 3.1 L (3.4-5.0) g/dl Globulin 4.3 gm/dL Albumin/Globulin Ratio 0.7 L (1-2) Med Orders - Current: Current Medications Bisacodyl (Dulcolax) 5 mg PO DAILY PRN PRN Reason: Constipation Cholecalciferol (Vitamin D3) 5,000 unit PO DAILY [facility] Cyclobenzaprine HCl (Flexeril) 10 mg PO TID PRN PRN Reason: Spasms Last Admin: 10/27/19 02:53 Dose: 10 mg Documented by: Docusate Sodium (Colace) 100 mg PO BID [facility] Last Admin: 10/26/19 20:44 Dose: 100 mg Documented by: Cefazolin Sodium/Dextrose 2 gm (/ Premix) 50 mls @ 100 mls/hr IV Q8H [facility] Stop: 10/27/19 07:59 Last Admin: 10/27/19 06:30 Dose: 100 mls/hr Documented by: Loratadine (Claritin) 10 mg PO DAILY PRN PRN Reason: Allergies Magnesium Hydroxide (Milk Of Magnesia) 30 ml PO BID PRN PRN Reason: Constipation Morphine Sulfate (Morphine) 2 mg IVPUSH Q2H PRN PRN Reason: Breakthrough Pain Last Admin: 10/26/19 12:45 Dose: 2 mg Documented by: Naloxone HCl (Narcan) 0.1 mg IVPUSH Q5M PRN PRN Reason: Oversedation Ondansetron HCl (Zofran) 4 mg IVPUSH Q6H PRN PRN Reason: Nausea/Vomiting Oxycodone/Acetaminophen (Percocet 325-5 Mg) 1 - 2 tab PO Q4H PRN PRN Reason: Pain Last Admin: 10/27/19 05:52 Dose: 2 tab Documented by: Pantoprazole Sodium (Protonix) 40 mg PO DAILY [facility] Rivaroxaban (Xarelto) 10 mg PO DAILY [facility] Senna (Senna) 8.6 mg PO BID PRN PRN Reason: Constipation Vitamin B Complex/Vitamin C (Super B With Vitamin C) 1 cap PO DAILY [facility] Discontinued Medications Acetaminophen (Tylenol) 975 mg PO ONETIME [facility] Stop: 10/26/19 14:00 Last Admin: 10/26/19 07:23 Dose: 975 mg Documented by: Bupivacaine HCl (Sensorcaine-Mpf 0.25%) Confirm Administered Dose 30 ml .ROUTE .STK-MED ONE Stop: 10/26/19 07:13 Last Admin: 10/26/19 09:26 Dose: 30 ml Documented by: Bupivacaine HCl (Sensorcaine-Mpf 0.25%) Confirm Administered Dose 10 ml .ROUTE .STK-MED ONE Stop: 10/26/19 07:28 Last Admin: 10/26/19 09:50 Dose: 4 ml Documented by: Cefazolin Sodium (Ancef) Confirm Administered Dose 0 gm .ROUTE .STK-MED ONE Stop: 10/26/19 06:58 Cefazolin Sodium (Ancef) Confirm Administered Dose 2 gm .ROUTE .STK-MED ONE Stop: 10/26/19 07:06 Last Admin: 10/26/19 09:22 Dose: 2 gm Documented by: Cefazolin Sodium (Ancef) Confirm Administered Dose 2 gm .ROUTE .STK-MED ONE Stop: 10/26/19 07:14 Morphine Sulfate 8 mg/Epinephrine HCl 0.3 mg/Cefuroxime Sodium 750 mg/Sodium Chloride 7.9 ml 0 mg .XX ONETIME ONE Stop: 10/26/19 10:01 Last Admin: 10/26/19 09:26 Dose: 758.3 mg Documented by: Dexamethasone (Dexamethasone) Confirm Administered Dose 0 mg .ROUTE .STK-MED ONE Stop: 10/26/19 06:44 Dexamethasone (Dexamethasone) Confirm Administered Dose 20 mg .ROUTE .STK-MED ONE Stop: 10/26/19 10:52 Epinephrine HCl (Adrenalin) Confirm Administered Dose 1 mg .ROUTE .STK-MED ONE Stop: 10/26/19 07:11 Famotidine (Pepcid) 20 mg PO Q12H [facility] Last Admin: 10/26/19 11:49 Dose: Not Given Documented by: Famotidine (Pepcid) 20 mg PO Q12H [facility] Fentanyl (Sublimaze) Confirm Administered Dose 0 mcg .ROUTE .STK-MED ONE Stop: 10/26/19 06:43 Fentanyl (Sublimaze) 100 mcg IVPUSH ONETIME PRN PRN Reason: Pain Stop: 10/26/19 12:00 Glycopyrrolate () Confirm Administered Dose 1 mg .ROUTE .STK-MED ONE Stop: 10/26/19 07:36 Hydromorphone HCl (Dilaudid) 0.5 mg IVPUSH ONETIME PRN PRN Reason: Pain (severe 7-10) Stop: 10/26/19 12:00 Lactated Ringer's (Ringers, Lactated) 1,000 mls @ 125 mls/hr IV ASDIRECTED [facility] Stop: 10/26/19 23:00 Last Admin: 10/26/19 07:45 Dose: 125 mls/hr Documented by: Lidocaine HCl (Xylocaine-Mpf 1%) Confirm Administered Dose 0 mls @ as directed .ROUTE .STK-MED ONE Stop: 10/26/19 06:44 Lidocaine HCl (Xylocaine-Mpf 1%) Confirm Administered Dose 4 mls @ as directed .ROUTE .STK-MED ONE Stop: 10/26/19 07:06 Lactated Ringer's (Ringers, Lactated) Confirm Administered Dose 1,000 mls @ as directed .ROUTE .STK-MED ONE Stop: 10/26/19 08:52 Lidocaine HCl (Xylocaine-Mpf 1%) Confirm Administered Dose 4 mls @ as directed .ROUTE .STK-MED ONE Stop: 10/26/19 10:10 Iodine (Iodine 2% Mild Tincture) Confirm Administered Dose 30 ml .ROUTE .STK-MED ONE Stop: 10/26/19 07:13 Last Admin: 10/26/19 09:21 Dose: 18 ml Documented by: Ketamine HCl (Ketalar) Confirm Administered Dose 0 mg .ROUTE .STK-MED ONE Stop: 10/26/19 06:44 Lidocaine/Sodium Bicarbonate (Buffered Lidocaine 1% In Ns 8.4%) 0.25 ml IDERM ONETIME PRN PRN Reason: Prior to IV Start Stop: 10/26/19 18:00 Last Admin: 10/26/19 07:45 Dose: 0.25 ml Documented by: Losartan Potassium (Cozaar) 50 mg PO DAILY [facility] Midazolam HCl (Versed 1 Mg/Ml) Confirm Administered Dose 0 mg .ROUTE .STK-MED ONE Stop: 10/26/19 06:44 Midazolam HCl (Versed 1 Mg/Ml) Confirm Administered Dose 2 mg .ROUTE .STK-MED ONE Stop: 10/26/19 07:06 Miscellaneous Medication (Phenylephrine 1 Mg/10 Ml-Ns) Confirm Administered Dose 1 mg IV .STK-MED ONE Stop: 10/26/19 08:38 Miscellaneous Medication (Phenylephrine 1 Mg/10 Ml-Ns) Confirm Administered Dose 1 mg IV .STK-MED ONE Stop: 10/26/19 09:32 Oxycodone HCl (Oxycontin) 10 mg PO ONETIME [facility] Stop: 10/26/19 14:00 Last Admin: 10/26/19 07:23 Dose: 10 mg Documented by: Pregabalin (Lyrica) 50 mg PO ONETIME [facility] Stop: 10/26/19 14:00 Last Admin: 10/26/19 07:23 Dose: 50 mg Documented by: Propofol (Diprivan 20 Ml) Confirm Administered Dose 0 mg .ROUTE .STK-MED ONE Stop: 10/26/19 06:43 Propofol (Diprivan 20 Ml) Confirm Administered Dose 400 mg .ROUTE .STK-MED ONE Stop: 10/26/19 07:06 Ropivacaine (Naropin 0.5%) Confirm Administered Dose 30 ml .ROUTE .STK-MED ONE Stop: 10/26/19 07:45 Sodium Chloride (Saline Flush) 10 ml FLUSH ASDIRECTED PRN PRN Reason: Keep Vein Open Stop: 10/26/19 18:00 Tranexamic Acid (Cyklokapron) Confirm Administered Dose 1,000 mg .ROUTE .STK-MED ONE Stop: 10/26/19 07:13 Last Admin: 10/26/19 09:32 Dose: 1,000 mg Documented by: Triamcinolone Acetonide (Kenalog-40) Confirm Administered Dose 80 mg .ROUTE .STK-MED ONE Stop: 10/26/19 07:28 Last Admin: 10/26/19 09:50 Dose: 80 mg Documented by: Vancomycin HCl (Vancomycin) Confirm Administered Dose 1 gm .ROUTE .STK-MED ONE Stop: 10/26/19 07:13 - Exam Wound/Incisions: Dressing Dry and Intact General: Alert, Cooperative, No Acute Distress Lungs: Normal Respiratory Effort Extremities: Other (NVS intact for LLE. Azalea's negative.) Sepsis Event Note - Evaluation Sepsis Screening Result: No Definite Risk - Focused Exam Vital Signs: Vital Signs Temp Pulse Resp BP Pulse Ox 10/27/19 05:35 98.2 F 91 20 150/84 H 97 10/26/19 23:25 98.2 F 92 18 150/83 H 96 10/26/19 20:40 98.1 F 79 18 155/79 H 94 L Date Exam was Performed: 10/27/19 Time Exam was Performed: 07:09 - Problem List Review Problem List Initiated/Reviewed/Updated: Yes - My Orders Last 24 Hours: Active Orders 24 hr Category Date Time Status Patient Status [ADT] Routine ADT 10/26/19 06:38 Active Antiembolic Devices [RC] BID Care 10/26/19 06:37 Active May Shower [RC] ASDIRECTED Care 10/26/19 06:38 Active Notify Provider Consults [RC] ASDIRECTED Care 10/26/19 06:40 Active Oxygen Therapy [RC] PRN Care 10/26/19 06:38 Active Pulse Oximetry [RC] .PRN Care 10/26/19 08:32 Active RT Incentive Spirometry [RC] Q1HWA Care 10/26/19 06:37 Active Up to Chair [RC] ASDIRECTED Care 10/26/19 06:38 Active Vital Signs [RC] 00,04,08,12,16,20 Care 10/26/19 06:38 Active Consult to Physician [CONS] Routine Cons 10/26/19 06:38 Active OT Evaluation and Treatment [CONS] Routine Cons 10/26/19 06:37 Active PT Evaluation and Treatment [CONS] Routine Cons 10/26/19 06:37 Active Regular Diet [DIET] Diet 10/26/19 Lunch Active Acetaminophen/oxyCODONE [Percocet 325-5 MG] Med 10/26/19 06:37 Active 1 - 2 tab PO Q4H PRN Cholecalciferol (Vitamin D3) [Vitamin D3] Med 10/27/19 09:00 Active 5,000 unit PO DAILY Cyclobenzaprine [Flexeril] Med 10/26/19 06:37 Active 10 mg PO TID PRN Docusate Sodium [Colace] Med 10/26/19 21:00 Active 100 mg PO BID Loratadine [Claritin] Med 10/26/19 12:46 Active 10 mg PO DAILY PRN Magnesium Hydroxide [Milk of Magnesia] Med 10/26/19 06:38 Active 30 ml PO BID PRN Morphine Med 10/26/19 06:38 Active 2 mg IVPUSH Q2H PRN Naloxone [Narcan] Med 10/26/19 06:38 Active 0.1 mg IVPUSH Q5M PRN Ondansetron [Zofran] Med 10/26/19 06:38 Active 4 mg IVPUSH Q6H PRN Pantoprazole [ProTONIX] Med 10/27/19 09:00 Active 40 mg PO DAILY Rivaroxaban [Xarelto] Med 10/27/19 09:00 Pending 10 mg PO DAILY Sennosides [Senna] Med 10/26/19 06:38 Active 8.6 mg PO BID PRN Vitamin B Complex with C [Super B With Vitamin C] Med 10/27/19 09:00 Active 1 cap PO DAILY bisacodyL [Dulcolax] Med 10/26/19 06:38 Active 5 mg PO DAILY PRN ceFAZolin [Ancef] 2 gm Med 10/26/19 15:30 Active Premix Bag 1 bag IV Q8H Antiembolic Hose [OM.PC] Per Unit Routine Oth 10/26/19 06:39 Ordered Antiembolic Hose [OM.PC] Routine Oth 10/26/19 06:37 Ordered Ice Therapy [OM.PC] Per Unit Routine Oth 10/26/19 06:39 Ordered Medication Administration Instruction [OM.PC] Routine Oth 10/26/19 07:00 Ordered Sequential Compression Device [OM.PC] Per Unit Routine Oth 10/26/19 06:37 Ordered Resuscitation Status Routine Resus Stat 10/26/19 06:38 Ordered Medication Orders Bisacodyl (Dulcolax) 5 mg PO DAILY PRN PRN Reason: Constipation Cholecalciferol (Vitamin D3) 5,000 unit PO DAILY [facility] Cyclobenzaprine HCl (Flexeril) 10 mg PO TID PRN PRN Reason: Spasms Last Admin: 10/27/19 02:53 Dose: 10 mg Documented by: Admin: 10/26/19 17:56 Dose: 10 mg Documented by: AGNES Docusate Sodium (Colace) 100 mg PO BID [facility] Last Admin: 10/26/19 20:44 Dose: 100 mg Documented by: GENE Cefazolin Sodium/Dextrose 2 gm (/ Premix) 50 mls @ 100 mls/hr IV Q8H [facility] Stop: 10/27/19 07:59 Last Admin: 10/27/19 06:30 Dose: 100 mls/hr Documented by: Infusion: 10/27/19 00:15 Dose: 100 mls/hr Documented by: Admin: 10/26/19 23:45 Dose: 100 mls/hr Documented by: Infusion: 10/26/19 16:22 Dose: 100 mls/hr Documented by: Admin: 10/26/19 15:52 Dose: 100 mls/hr Documented by: AGNES Loratadine (Claritin) 10 mg PO DAILY PRN PRN Reason: Allergies Magnesium Hydroxide (Milk Of Magnesia) 30 ml PO BID PRN PRN Reason: Constipation Morphine Sulfate (Morphine) 2 mg IVPUSH Q2H PRN PRN Reason: Breakthrough Pain Last Admin: 10/26/19 12:45 Dose: 2 mg Documented by: BLADIMIR Naloxone HCl (Narcan) 0.1 mg IVPUSH Q5M PRN PRN Reason: Oversedation Ondansetron HCl (Zofran) 4 mg IVPUSH Q6H PRN PRN Reason: Nausea/Vomiting Oxycodone/Acetaminophen (Percocet 325-5 Mg) 1 - 2 tab PO Q4H PRN PRN Reason: Pain Last Admin: 10/27/19 05:52 Dose: 2 tab Documented by: Admin: 10/27/19 00:57 Dose: 2 tab Documented by: Admin: 10/26/19 20:43 Dose: 2 tab Documented by: Admin: 10/26/19 15:51 Dose: 2 tab Documented by: Admin: 10/26/19 11:30 Dose: 2 tab Documented by: ASHANTI Pantoprazole Sodium (Protonix) 40 mg PO DAILY [facility] Rivaroxaban (Xarelto) 10 mg PO DAILY [facility] Senna (Senna) 8.6 mg PO BID PRN PRN Reason: Constipation Vitamin B Complex/Vitamin C (Super B With Vitamin C) 1 cap PO DAILY [facility] - Assessment Assessment (Free Text/Narrative):: POD#1 - left TKA with right greater troch injection - Plan Plan (Free Text/Narrative):: 1. Discharge to home today if pt meets inpt therapy goals. 2. Percocet and Flexeril for pain management. 3. Xarelto (pt is unable to tolerate NSAIDs and ASA), frequent mobility, TEDs for VTE prophylaxis. 4. Outpatient therapy. 5. Hgb 13.2. The pt's case was discussed with Dr. Gonzalez.
--- NOTE | 2019-10-27 07:34 | PCM.CONSN ---
- General Info Date of Service: 10/27/19 Admission Dx/Problem (Free Text): Admission Diagnosis/Problem Admission Diagnosis/Problem Osteoarthritis of knee Functional Status: Reports: Pain Controlled, Tolerating Diet, Ambulating, Urinating, Incentive Spirometry. Denies: New Symptoms - Review of Systems General: Reports: No Symptoms. Denies: Fever, Chills HEENT: Reports: No Symptoms. Denies: Headaches, Sore Throat Pulmonary: Reports: No Symptoms. Denies: Shortness of Breath, Pleuritic Chest Pain, Cough, Sputum, Wheezing Cardiovascular: Reports: No Symptoms. Denies: Chest Pain, Palpitations, Dyspnea on Exertion Gastrointestinal: Reports: No Symptoms. Denies: Abdominal Pain, Constipation, Diarrhea, Nausea, Vomiting Genitourinary: Reports: No Symptoms. Denies: Pain Musculoskeletal: Reports: Leg Pain Skin: Reports: No Symptoms. Denies: Cyanosis Neurological: Reports: Difficulty Walking, Gait Disturbance. Denies: Confusion Psychiatric: Reports: No Symptoms - Patient Data Vitals - Most Recent: Last Vital Signs Temp 98.2 F 10/27/19 05:35 Pulse 91 10/27/19 05:35 Resp 20 10/27/19 05:35 BP 150/84 H 10/27/19 05:35 Pulse Ox 97 10/27/19 05:35 Weight - Most Recent: 143 lb 8 oz I&O - Last 24 Hours: Intake & Output 10/26/19 10/27/19 10/27/19 22:59 06:59 14:59 Intake Total 490 500 Output Total 1100 Balance 490 -600 Lab Results Last 24 Hours: Laboratory Results - last 24 hr 10/27/19 10/27/19 Range/Units 06:03 06:03 WBC 12.89 H (3.98-10.04) K/mm3 RBC 4.57 (3.98-5.22) M/mm3 Hgb 13.2 D (11.2-15.7) gm/dl Hct 40.5 (34.1-44.9) % MCV 88.6 (79.4-94.8) fl MCH 28.9 (25.6-32.2) pg MCHC 32.6 (32.2-35.5) g/dl RDW Std Deviation 47.2 H (36.4-46.3) fL Plt Count 249 (182-369) K/mm3 MPV 8.7 L (9.4-12.3) fl Sodium 134 L (136-145) mEq/L Potassium 3.8 (3.5-5.1) mEq/L Chloride 98 (98-107) mEq/L Carbon Dioxide 26 (21-32) mEq/L Anion Gap 13.8 (5-15) BUN 15 (7-18) mg/dL Creatinine 1.0 (0.55-1.02) mg/dL Est Cr Clr Drug Dosing 56.00 mL/min Estimated GFR (MDRD) 57 (>60) mL/min BUN/Creatinine Ratio 15.0 (14-18) Glucose 147 H (74-106) mg/dL Calcium 8.9 (8.5-10.1) mg/dL Total Bilirubin 0.4 (0.2-1.0) mg/dL AST 19 (15-37) U/L ALT 26 (14-59) U/L Alkaline Phosphatase 85 (46-116) U/L Total Protein 7.4 (6.4-8.2) g/dl Albumin 3.1 L (3.4-5.0) g/dl Globulin 4.3 gm/dL Albumin/Globulin Ratio 0.7 L (1-2) Med Orders - Current: Current Medications Bisacodyl (Dulcolax) 5 mg PO DAILY PRN PRN Reason: Constipation Cholecalciferol (Vitamin D3) 5,000 unit PO DAILY [facility] Cyclobenzaprine HCl (Flexeril) 10 mg PO TID PRN PRN Reason: Spasms Last Admin: 10/27/19 02:53 Dose: 10 mg Documented by: Docusate Sodium (Colace) 100 mg PO BID [facility] Last Admin: 10/26/19 20:44 Dose: 100 mg Documented by: Cefazolin Sodium/Dextrose 2 gm (/ Premix) 50 mls @ 100 mls/hr IV Q8H [facility] Stop: 10/27/19 07:59 Last Admin: 10/27/19 06:30 Dose: 100 mls/hr Documented by: Loratadine (Claritin) 10 mg PO DAILY PRN PRN Reason: Allergies Magnesium Hydroxide (Milk Of Magnesia) 30 ml PO BID PRN PRN Reason: Constipation Morphine Sulfate (Morphine) 2 mg IVPUSH Q2H PRN PRN Reason: Breakthrough Pain Last Admin: 10/26/19 12:45 Dose: 2 mg Documented by: Naloxone HCl (Narcan) 0.1 mg IVPUSH Q5M PRN PRN Reason: Oversedation Ondansetron HCl (Zofran) 4 mg IVPUSH Q6H PRN PRN Reason: Nausea/Vomiting Oxycodone/Acetaminophen (Percocet 325-5 Mg) 1 - 2 tab PO Q4H PRN PRN Reason: Pain Last Admin: 10/27/19 05:52 Dose: 2 tab Documented by: Pantoprazole Sodium (Protonix) 40 mg PO DAILY [facility] Rivaroxaban (Xarelto) 10 mg PO DAILY [facility] Senna (Senna) 8.6 mg PO BID PRN PRN Reason: Constipation Vitamin B Complex/Vitamin C (Super B With Vitamin C) 1 cap PO DAILY [facility] Discontinued Medications Acetaminophen (Tylenol) 975 mg PO ONETIME [facility] Stop: 10/26/19 14:00 Last Admin: 10/26/19 07:23 Dose: 975 mg Documented by: Bupivacaine HCl (Sensorcaine-Mpf 0.25%) Confirm Administered Dose 30 ml .ROUTE .STK-MED ONE Stop: 10/26/19 07:13 Last Admin: 10/26/19 09:26 Dose: 30 ml Documented by: Bupivacaine HCl (Sensorcaine-Mpf 0.25%) Confirm Administered Dose 10 ml .ROUTE .STK-MED ONE Stop: 10/26/19 07:28 Last Admin: 10/26/19 09:50 Dose: 4 ml Documented by: Cefazolin Sodium (Ancef) Confirm Administered Dose 0 gm .ROUTE .STK-MED ONE Stop: 10/26/19 06:58 Cefazolin Sodium (Ancef) Confirm Administered Dose 2 gm .ROUTE .STK-MED ONE Stop: 10/26/19 07:06 Last Admin: 10/26/19 09:22 Dose: 2 gm Documented by: Cefazolin Sodium (Ancef) Confirm Administered Dose 2 gm .ROUTE .STK-MED ONE Stop: 10/26/19 07:14 Morphine Sulfate 8 mg/Epinephrine HCl 0.3 mg/Cefuroxime Sodium 750 mg/Sodium Chloride 7.9 ml 0 mg .XX ONETIME ONE Stop: 10/26/19 10:01 Last Admin: 10/26/19 09:26 Dose: 758.3 mg Documented by: Dexamethasone (Dexamethasone) Confirm Administered Dose 0 mg .ROUTE .STK-MED ONE Stop: 10/26/19 06:44 Dexamethasone (Dexamethasone) Confirm Administered Dose 20 mg .ROUTE .STK-MED ONE Stop: 10/26/19 10:52 Epinephrine HCl (Adrenalin) Confirm Administered Dose 1 mg .ROUTE .STK-MED ONE Stop: 10/26/19 07:11 Famotidine (Pepcid) 20 mg PO Q12H [facility] Last Admin: 10/26/19 11:49 Dose: Not Given Documented by: Famotidine (Pepcid) 20 mg PO Q12H [facility] Fentanyl (Sublimaze) Confirm Administered Dose 0 mcg .ROUTE .STK-MED ONE Stop: 10/26/19 06:43 Fentanyl (Sublimaze) 100 mcg IVPUSH ONETIME PRN PRN Reason: Pain Stop: 10/26/19 12:00 Glycopyrrolate () Confirm Administered Dose 1 mg .ROUTE .STK-MED ONE Stop: 10/26/19 07:36 Hydromorphone HCl (Dilaudid) 0.5 mg IVPUSH ONETIME PRN PRN Reason: Pain (severe 7-10) Stop: 10/26/19 12:00 Lactated Ringer's (Ringers, Lactated) 1,000 mls @ 125 mls/hr IV ASDIRECTED [facility] Stop: 10/26/19 23:00 Last Admin: 10/26/19 07:45 Dose: 125 mls/hr Documented by: Lidocaine HCl (Xylocaine-Mpf 1%) Confirm Administered Dose 0 mls @ as directed .ROUTE .STK-MED ONE Stop: 10/26/19 06:44 Lidocaine HCl (Xylocaine-Mpf 1%) Confirm Administered Dose 4 mls @ as directed .ROUTE .STK-MED ONE Stop: 10/26/19 07:06 Lactated Ringer's (Ringers, Lactated) Confirm Administered Dose 1,000 mls @ as directed .ROUTE .STK-MED ONE Stop: 10/26/19 08:52 Lidocaine HCl (Xylocaine-Mpf 1%) Confirm Administered Dose 4 mls @ as directed .ROUTE .STK-MED ONE Stop: 10/26/19 10:10 Iodine (Iodine 2% Mild Tincture) Confirm Administered Dose 30 ml .ROUTE .STK-MED ONE Stop: 10/26/19 07:13 Last Admin: 10/26/19 09:21 Dose: 18 ml Documented by: Ketamine HCl (Ketalar) Confirm Administered Dose 0 mg .ROUTE .STK-MED ONE Stop: 10/26/19 06:44 Lidocaine/Sodium Bicarbonate (Buffered Lidocaine 1% In Ns 8.4%) 0.25 ml IDERM ONETIME PRN PRN Reason: Prior to IV Start Stop: 10/26/19 18:00 Last Admin: 10/26/19 07:45 Dose: 0.25 ml Documented by: Losartan Potassium (Cozaar) 50 mg PO DAILY [facility] Midazolam HCl (Versed 1 Mg/Ml) Confirm Administered Dose 0 mg .ROUTE .STK-MED ONE Stop: 10/26/19 06:44 Midazolam HCl (Versed 1 Mg/Ml) Confirm Administered Dose 2 mg .ROUTE .STK-MED ONE Stop: 10/26/19 07:06 Miscellaneous Medication (Phenylephrine 1 Mg/10 Ml-Ns) Confirm Administered Dose 1 mg IV .STK-MED ONE Stop: 10/26/19 08:38 Miscellaneous Medication (Phenylephrine 1 Mg/10 Ml-Ns) Confirm Administered Dose 1 mg IV .STK-MED ONE Stop: 10/26/19 09:32 Oxycodone HCl (Oxycontin) 10 mg PO ONETIME [facility] Stop: 10/26/19 14:00 Last Admin: 10/26/19 07:23 Dose: 10 mg Documented by: Pregabalin (Lyrica) 50 mg PO ONETIME [facility] Stop: 10/26/19 14:00 Last Admin: 10/26/19 07:23 Dose: 50 mg Documented by: Propofol (Diprivan 20 Ml) Confirm Administered Dose 0 mg .ROUTE .STK-MED ONE Stop: 10/26/19 06:43 Propofol (Diprivan 20 Ml) Confirm Administered Dose 400 mg .ROUTE .STK-MED ONE Stop: 10/26/19 07:06 Ropivacaine (Naropin 0.5%) Confirm Administered Dose 30 ml .ROUTE .STK-MED ONE Stop: 10/26/19 07:45 Sodium Chloride (Saline Flush) 10 ml FLUSH ASDIRECTED PRN PRN Reason: Keep Vein Open Stop: 10/26/19 18:00 Tranexamic Acid (Cyklokapron) Confirm Administered Dose 1,000 mg .ROUTE .STK-MED ONE Stop: 10/26/19 07:13 Last Admin: 10/26/19 09:32 Dose: 1,000 mg Documented by: Triamcinolone Acetonide (Kenalog-40) Confirm Administered Dose 80 mg .ROUTE .STK-MED ONE Stop: 10/26/19 07:28 Last Admin: 10/26/19 09:50 Dose: 80 mg Documented by: Vancomycin HCl (Vancomycin) Confirm Administered Dose 1 gm .ROUTE .STK-MED ONE Stop: 10/26/19 07:13 - Exam Quality Assessment: DVT Prophylaxis. No: Supplemental Oxygen, Urine Catheter General: Alert, Oriented, Cooperative, No Acute Distress HEENT: Pupils Equal, Pupils Reactive, Mucous Membr. Moist/[place] Neck: Supple, Trachea Midline Lungs: Clear to Auscultation, Normal Respiratory Effort Cardiovascular: Regular Rate, Regular Rhythm GI/Abdominal Exam: Normal Bowel Sounds, Soft, Non-Tender, No Distention (Female) Exam: Deferred Back Exam: Normal Inspection, Full Range of Motion Extremities: Normal Capillary Refill, Leg Pain, Limited Range of Motion, Other (Bandage in place on left leg. Cooling pack in place. ) Peripheral Pulses: 2+: Radial (L), Radial (R), Dorsalis Pedis (L), Dorsalis Pedis (R) Skin: Warm, Dry, Intact Wound/Incisions: Dressing Dry and Intact Neurological: No New Focal Deficit Psy/Mental Status: Alert, Normal Affect, Normal Mood Sepsis Event Note - Evaluation Sepsis Screening Result: No Definite Risk - Focused Exam Vital Signs: Vital Signs Temp Pulse Resp BP Pulse Ox 10/27/19 05:35 98.2 F 91 20 150/84 H 97 10/26/19 23:25 98.2 F 92 18 150/83 H 96 10/26/19 20:40 98.1 F 79 18 155/79 H 94 L Date Exam was Performed: 10/27/19 Time Exam was Performed: 11:56 Consult PN Assessment/Plan POD#: 1 Procedures: Procedures APPLICATION LOWER LEG SPLINT (05/09/14) ASSAY OF LIPASE (01/23/17) ASSAY OF PREALBUMIN (03/24/18) ASSAY OF SERUM ALBUMIN (03/24/18) COMP SCREEN MAMMOGRAM ADD-ON (01/04/16) COMPLETE CBC W/AUTO DIFF WBC (03/24/18) COMPREHEN METABOLIC PANEL (01/23/17) CULTURE OTHR SPECIMN AEROBIC (12/07/14) DXA BONE DENSITY AXIAL (03/26/18) EMERGENCY DEPT VISIT (01/23/17) EMERGENCY DEPT VISIT (06/30/16) EMERGENCY DEPT VISIT (07/15/13) FLUOROSCOPY <1 HR PHYS/QHP (05/11/14) HYDRATE IV INFUSION ADD-ON (01/23/17) HYDRATION IV INFUSION INIT (07/15/13) MEASURE BLOOD OXYGEN LEVEL (07/15/13) METABOLIC PANEL TOTAL CA (03/24/18) MR-STAPH DNA AMP PROBE (02/14/15) MRI BRAIN STEM W/O & W/DYE (09/28/13) MRI JNT OF LWR EXTRE W/O DYE (07/01/18) MRI JOINT UPR EXTREM W/O DYE (01/16/18) MRI NECK SPINE W/O DYE (01/16/18) PROTHROMBIN TIME (03/24/18) REMOVAL OF SUPPORT IMPLANT (02/17/15) ROUTINE VENIPUNCTURE (03/24/18) THER/PROPH/DIAG INJ IV PUSH (05/09/14) THER/PROPH/DIAG INJ SC/IM (06/30/16) THER/PROPH/DIAG IV INF ADDON (01/23/17) THER/PROPH/DIAG IV INF INIT (01/23/17) TISSUE EXAM BY PATHOLOGIST (01/11/15) TREATMENT OF ANKLE FRACTURE (05/11/14) TX/PRO/DX INJ NEW DRUG ADDON (01/23/17) TX/PRO/DX INJ SAME DRUG 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 OFF WORKER (01/23/17) X-RAY EXAM CHEST 2 VIEWS (03/24/18) X-RAY EXAM KNEE 4 OR MORE (06/30/16) X-RAY EXAM OF ANKLE (03/23/15) X-RAY EXAM OF ANKLE (11/24/14) X-RAY EXAM OF ANKLE (07/14/14) X-RAY EXAM OF ANKLE (06/02/14) X-RAY EXAM OF ANKLE (05/09/14) X-RAY EXAM OF LOWER LEG (05/09/14) (1) S/P total knee arthroplasty SNOMED Code(s): 8955534740925, 992066205, 8258489924128 Code(s): Z96.659 - PRESENCE OF UNSPECIFIED ARTIFICIAL KNEE JOINT Priority: High Current Visit: Yes Qualifiers: Laterality: left Qualified Code(s): Z96.652 - Presence of left artificial knee joint (2) Hypokalemia SNOMED Code(s): 21652958 Code(s): E87.6 - HYPOKALEMIA Priority: Low Current Visit: No (3) Anemia SNOMED Code(s): 542609366 Code(s): D64.9 - ANEMIA, UNSPECIFIED Priority: Low Current Visit: No Qualifiers: Anemia type: unspecified type Qualified Code(s): D64.9 - Anemia, unspecified (4) Microhematuria SNOMED Code(s): 382011328 Code(s): R31.29 - OTHER MICROSCOPIC HEMATURIA Priority: Low Current Visit: No (5) HLD (hyperlipidemia) SNOMED Code(s): 71683510 Code(s): E78.5 - HYPERLIPIDEMIA, UNSPECIFIED Priority: Low Current Visit: No Qualifiers: Hyperlipidemia type: unspecified Qualified Code(s): E78.5 - Hyperlipidemia, unspecified (6) Eustachian tube dysfunction SNOMED Code(s): 70188224 Code(s): H69.80 - OTH DISRD OF EUSTACHIAN TUBE, UNSPECIFIED EAR Priority: Low Current Visit: No Qualifiers: Laterality: unspecified laterality Qualified Code(s): H69.80 - Other specified disorders of Eustachian tube, unspecified ear (7) Osteopenia SNOMED Code(s): 057552345 Code(s): M85.80 - OTH DISRD OF BONE DENSITY AND STRUCTURE, UNSPECIFIED SITE Priority: Medium Current Visit: No Qualifiers: Osteopenia location: unspecified Qualified Code(s): M85.80 - Other specified disorders of bone density and structure, unspecified site (8) Varicose vein of leg SNOMED Code(s): 33559362 Code(s): I83.90 - ASYMPTOMATIC VARICOSE VEINS OF UNSPECIFIED LOWER EXTREMITY Priority: Low Current Visit: No Qualifiers: Varicose vein complication: unspecified Laterality: unspecified laterality Qualified Code(s): I83.90 - Asymptomatic varicose veins of unspecified lower extremity (9) TMJ arthralgia SNOMED Code(s): 22052965, 642382210 Code(s): M26.629 - ARTHRALGIA OF TEMPOROMANDIBULAR JOINT, UNSPECIFIED SIDE Priority: Low Current Visit: No Qualifiers: Laterality: unspecified laterality Qualified Code(s): M26.629 - Arthralgia of temporomandibular joint, unspecified side (10) Asthma SNOMED Code(s): 211737459 Code(s): J45.909 - UNSPECIFIED ASTHMA, UNCOMPLICATED Priority: Medium Current Visit: No Qualifiers: Asthma severity: unspecified severity Asthma persistence: unspecified Asthma complication type: unspecified Qualified Code(s): J45.909 - Unspecified asthma, uncomplicated (11) GERD (gastroesophageal reflux disease) SNOMED Code(s): 570811648 Code(s): K21.9 - GASTRO-ESOPHAGEAL REFLUX DISEASE WITHOUT ESOPHAGITIS Priority: Medium Current Visit: No Qualifiers: Esophagitis presence: esophagitis presence not specified Qualified Code(s): K21.9 - Gastro-esophageal reflux disease without esophagitis (12) HTN (hypertension) SNOMED Code(s): 02388250 Code(s): I10 - ESSENTIAL (PRIMARY) HYPERTENSION Priority: Medium Current Visit: No Qualifiers: Hypertension type: unspecified Qualified Code(s): I10 - Essential (primary) hypertension (13) Osteoarthritis SNOMED Code(s): 064102568 Code(s): M19.90 - UNSPECIFIED OSTEOARTHRITIS, UNSPECIFIED SITE Priority: High Current Visit: Yes Qualifiers: Osteoarthritis location: knee Osteoarthritis type: primary Laterality: left Qualified Code(s): M17.12 - Unilateral primary osteoarthritis, left knee Problem List Initiated/Reviewed/Updated: Yes Plan: I/P: Acute: S/P left total knee arthroplasty - post-operative day 1 -DVT prophylaxis and pain management per primary care team -PT/OT -IS/RT -Monitor oxygen saturation -Titrate oxygen as needed -Home medications reviewed -Vital signs stable -Monitor labs -Pre-operative Hgb was 14.0; Now 13.2 -Pre-operative GFR was 70; Now 57 -Pre-operative potassium was 3.4; Now 3.8 -Pre-operative 12-lead EKG showed a sinus rhythm at 69 BPM Osteoarthritis of left knee -Pain management per primary care team Chronic: HTN Hypokalemia Anemia Asthma GERD Microhematuria HLD TMJ arthralgia Eustachian tube dysfunction Varicose veins Osteopenia Plan: CM for discharge planning GI prophylaxis Home medications as indicated Other orders as listed above Routine AM labs She is a full code. Her PCP is Dr. Wilkerson From a hospitalist standpoint Elyse is doing well. She is off of oxygen and has urinated. She has been up ambulating and working with therapies. Pain is mostly controlled and primary team has been working on this. Her labs and vital signs remain stable. She is cleared for discharge pending primary team and PT/OT agreement. Thank you for allowing us to participate in the care of this patient!!
--- NOTE | 2019-10-27 07:57 | PCM48HPAN ---
Post Anesthesia Note - EVALUATION WITHIN 48HRS OF ANESTHETIC Vital Signs in Normal Range: Yes Patient Participated in Evaluation: Yes Respiratory Function Stable: Yes Airway Patent: Yes Cardiovascular Function Stable: Yes Hydration Status Stable: Yes Pain Control Satisfactory: Yes Nausea and Vomiting Control Satisfactory: Yes Mental Status Recovered: Yes Vital Signs: Last Vital Signs Temp 36.8 C 10/27/19 05:35 Pulse 91 10/27/19 05:35 Resp 20 10/27/19 05:35 BP 150/84 H 10/27/19 05:35 Pulse Ox 97 10/27/19 05:35
[2019-10-27] MEDS ORDERED: Vitamin B Complex With Vitamin C Cap PO SCH (09:00)
[2019-10-27] MEDS ORDERED: Losartan 25 MG Tab PO SCH (09:00)
[2019-10-27] MEDS ORDERED: Cholecalciferol (Vitamin D3) 5,000 UNIT Tab PO SCH (09:00)
[2019-10-27] MEDS ORDERED: Pantoprazole 40 MG Tab.CR PO SCH (09:00)
[2019-10-27] MEDS ORDERED: Rivaroxaban 10 MG Tab PO SCH (09:00)
--- NOTE | 2019-10-27 09:27 | PCM.DCSUM1 ---
Discharge Summary - Hospital Course Brief History: Elyse is a 59 yo female who underwent left TKA with Dr. Gonzalez on 10-26-2019. The procedure was completed under spinal anesthesia with sedation. A post-operative adductor canal block was also provided. The pt tolerated the procedure well and was admitted to the Medical-Surgical Unit. Medical management was provided by the Hospitalist service. The pt's Hospital course was remarkable for need for close monitoring of pain management. The pt's Hgb on POD#1 was 13.2. On POD#1, Xarelto 10mg PO daily was initiated for VTE prophylaxis. SCDs and TEDs were also ordered. A Mepilex dressing was placed at the incision site at the time of surgery and remained clean and dry. The pt participated in P.T. and O.T. and progressed well. The pt was allowed to WBAT and used a FWW for mobility. On POD#1, the pt was deemed appropriate to discharge to home with her . - Discharge Data Discharge Date: 10/27/19 Discharge Disposition: Home, Self-Care 01 Condition: Good - Referral to Home Health Primary Care Physician: Rafal Wilkerson MD - Patient Summary/Data Consults: Consultations 10/26/19 06:37 OT Evaluation and Treatment [CONS] Routine PT Evaluation and Treatment [CONS] Routine 10/26/19 06:38 Consult to Physician [CONS] Routine - Patient Instructions Diet: Usual Diet as Tolerated Activity: Apply Ice, As Tolerated, Elevate Extremity, Full Weight Bearing Driving: Do Not Drive Showering/Bathing: May Shower Wound/Incision Care: Keep Operative Site/Wound Site Clean and Dry, Do NOT Change Dressing Notify Provider of: Fever, Increased Pain, Swelling and Redness, Drainage, Nausea and/or Vomiting Other/Special Instructions: Please get up and moving around EVERY HOUR while awake. This helps to prevent blood clots. Please use your walker and have help with mobility as needed. Take a short walk in your home every hour while awake. Please take the Xarelto blood thinner medication daily as directed. At home, please complete the exercises that you learned during the Hospital stay. Schedule for physical therapy. Use the pain medication as needed. The medication may cause drowsiness and constipation. Contact your primary care provider for instructions if you are constipated. You may use a stool softener like docusate sodium or Colace 100mg twice daily and/or a laxative like Miralax daily for constipation. Increase your water and fiber intake while you are using the pain medication. Discontinue use of the pain medication as soon as able. Please do not use other medications that may cause drowsiness (other pain medications, anxiety pills, cold medications, sleeping pills, etc) while using the prescription pain medication. Do not use alcohol while using the pain medication. You may use acetaminophen or Tylenol for pain management, however, please ensure you are not using over 4000 mg or 4 grams of acetaminophen per day from all sources. Your pain medication has 325mg of acetaminophen per tablet. Wear the MAGDALENA hose during the day and you may remove these at night. Elevate the limb to decrease swelling. Place ice to the area often. Place a towel b etween your skin and the blue pad. Use the incentive spirometer often. Take deep breaths throughout the day. Please keep the dressing in place until follow-up. Notify the Clinic if the dressing becomes saturated. Increase your protein intake while you are healing. If you have diabetes, please closely monitor your blood sugars and notify your primary care provider with abnormal values. Elevated blood sugars increases the risk of infection. You may resume use of fish oil in 2 wks. Call the Clinic with questions or concerns - [phone] and leave a message for the nurse. - Discharge Plan *PRESCRIPTION DRUG MONITORING PROGRAM REVIEWED*: No *COPY OF PRESCRIPTION DRUG MONITORING REPORT IN PATIENT RADHA: No Prescriptions/Med Rec: Cyclobenzaprine [Flexeril] 10 mg PO BID PRN #40 tablet PRN Reason: Spasms Acetaminophen/oxyCODONE [Percocet 325-5 MG] 1 - 2 tab PO Q4H PRN #60 tablet PRN Reason: Pain Rivaroxaban [Xarelto] 10 mg PO DAILY #30 tablet Home Medications: Home Meds Hydrochlorothiazide 12.5 mg PO DAILY 01/23/17 [History] Losartan [Cozaar] 50 mg PO DAILY 01/23/17 [History] Omeprazole 20 mg PO DAILY 01/23/17 [History] Cholecalciferol (Vitamin D3) [Vitamin D] 5,000 units PO DAILY 03/27/18 [History] Cetirizine [ZyrTEC] 10 mg PO DAILY PRN 10/23/19 [History] Vitamin B Complex 1 tab PO DAILY 10/26/19 [History] Acetaminophen/oxyCODONE [Percocet 325-5 MG] 1 - 2 tab PO Q4H PRN #60 tablet 10/27/19 [Rx] Cyclobenzaprine [Flexeril] 10 mg PO BID PRN #40 tablet 10/27/19 [Rx] Docusate Sodium [Colace] 100 mg PO BID cap 10/27/19 [Rx] Magnesium Hydroxide [Milk of Magnesia] 30 ml PO BID PRN cup 10/27/19 [Rx] Rivaroxaban [Xarelto] 10 mg PO DAILY #30 tablet 10/27/19 [Rx] Sennosides [Senna] 8.6 mg PO BID PRN tablet 10/27/19 [Rx] bisacodyL [Dulcolax] 5 mg PO DAILY PRN tablet 10/27/19 [Rx] Patient Handouts: Rivaroxaban oral tablets, Total Knee Replacement, [id number] Referrals: Tiffanie Boyle PA-C [Physician Nurse Staff [employer]] - (Please follow up with Tiffanie Boyle PA-C on the following dates- November 02 at 2:15, November 09 at 2:15, and December 08 at 2:15.) - Discharge Summary/Plan Comment DC Time >30 min.: No - Patient Data Vitals - Most Recent: Last Vital Signs Temp 98.1 F 10/27/19 07:27 Pulse 83 10/27/19 07:27 Resp 20 10/27/19 07:27 BP 157/81 H 10/27/19 07:27 Pulse Ox 99 10/27/19 07:27 Weight - Most Recent: 143 lb 8 oz I&O - Last 24 hours: Intake & Output 10/26/19 10/27/19 10/27/19 22:59 06:59 14:59 Intake Total 490 500 Output Total 1100 Balance 490 -600 Lab Results - Last 24 hrs: Laboratory Results - last 24 hr 10/27/19 10/27/19 Range/Units 06:03 06:03 WBC 12.89 H (3.98-10.04) K/mm3 RBC 4.57 (3.98-5.22) M/mm3 Hgb 13.2 D (11.2-15.7) gm/dl Hct 40.5 (34.1-44.9) % MCV 88.6 (79.4-94.8) fl MCH 28.9 (25.6-32.2) pg MCHC 32.6 (32.2-35.5) g/dl RDW Std Deviation 47.2 H (36.4-46.3) fL Plt Count 249 (182-369) K/mm3 MPV 8.7 L (9.4-12.3) fl Sodium 134 L (136-145) mEq/L Potassium 3.8 (3.5-5.1) mEq/L Chloride 98 (98-107) mEq/L Carbon Dioxide 26 (21-32) mEq/L Anion Gap 13.8 (5-15) BUN 15 (7-18) mg/dL Creatinine 1.0 (0.55-1.02) mg/dL Est Cr Clr Drug Dosing 56.00 mL/min Estimated GFR (MDRD) 57 (>60) mL/min BUN/Creatinine Ratio 15.0 (14-18) Glucose 147 H (74-106) mg/dL Calcium 8.9 (8.5-10.1) mg/dL Total Bilirubin 0.4 (0.2-1.0) mg/dL AST 19 (15-37) U/L ALT 26 (14-59) U/L Alkaline Phosphatase 85 (46-116) U/L Total Protein 7.4 (6.4-8.2) g/dl Albumin 3.1 L (3.4-5.0) g/dl Globulin 4.3 gm/dL Albumin/Globulin Ratio 0.7 L (1-2) Med Orders - Current: Current Medications Bisacodyl (Dulcolax) 5 mg PO DAILY PRN PRN Reason: Constipation Cholecalciferol (Vitamin D3) 5,000 unit PO DAILY [facility] Cyclobenzaprine HCl (Flexeril) 10 mg PO TID PRN PRN Reason: Spasms Last Admin: 10/27/19 02:53 Dose: 10 mg Documented by: Docusate Sodium (Colace) 100 mg PO BID [facility] Last Admin: 10/26/19 20:44 Dose: 100 mg Documented by: Loratadine (Claritin) 10 mg PO DAILY PRN PRN Reason: Allergies Magnesium Hydroxide (Milk Of Magnesia) 30 ml PO BID PRN PRN Reason: Constipation Morphine Sulfate (Morphine) 2 mg IVPUSH Q2H PRN PRN Reason: Breakthrough Pain Last Admin: 10/26/19 12:45 Dose: 2 mg Documented by: Naloxone HCl (Narcan) 0.1 mg IVPUSH Q5M PRN PRN Reason: Oversedation Ondansetron HCl (Zofran) 4 mg IVPUSH Q6H PRN PRN Reason: Nausea/Vomiting Oxycodone/Acetaminophen (Percocet 325-5 Mg) 1 - 2 tab PO Q4H PRN PRN Reason: Pain Last Admin: 10/27/19 05:52 Dose: 2 tab Documented by: Pantoprazole Sodium (Protonix) 40 mg PO DAILY [facility] Rivaroxaban (Xarelto) 10 mg PO DAILY [facility] Senna (Senna) 8.6 mg PO BID PRN PRN Reason: Constipation Vitamin B Complex/Vitamin C (Super B With Vitamin C) 1 cap PO DAILY [facility] Discontinued Medications Acetaminophen (Tylenol) 975 mg PO ONETIME [facility] Stop: 10/26/19 14:00 Last Admin: 10/26/19 07:23 Dose: 975 mg Documented by: Bupivacaine HCl (Sensorcaine-Mpf 0.25%) Confirm Administered Dose 30 ml .ROUTE .STK-MED ONE Stop: 10/26/19 07:13 Last Admin: 10/26/19 09:26 Dose: 30 ml Documented by: Bupivacaine HCl (Sensorcaine-Mpf 0.25%) Confirm Administered Dose 10 ml .ROUTE .STK-MED ONE Stop: 10/26/19 07:28 Last Admin: 10/26/19 09:50 Dose: 4 ml Documented by: Cefazolin Sodium (Ancef) Confirm Administered Dose 0 gm .ROUTE .STK-MED ONE Stop: 10/26/19 06:58 Cefazolin Sodium (Ancef) Confirm Administered Dose 2 gm .ROUTE .STK-MED ONE Stop: 10/26/19 07:06 Last Admin: 10/26/19 09:22 Dose: 2 gm Documented by: Cefazolin Sodium (Ancef) Confirm Administered Dose 2 gm .ROUTE .STK-MED ONE Stop: 10/26/19 07:14 Morphine Sulfate 8 mg/Epinephrine HCl 0.3 mg/Cefuroxime Sodium 750 mg/Sodium Chloride 7.9 ml 0 mg .XX ONETIME ONE Stop: 10/26/19 10:01 Last Admin: 10/26/19 09:26 Dose: 758.3 mg Documented by: Dexamethasone (Dexamethasone) Confirm Administered Dose 0 mg .ROUTE .STK-MED ONE Stop: 10/26/19 06:44 Dexamethasone (Dexamethasone) Confirm Administered Dose 20 mg .ROUTE .STK-MED ONE Stop: 10/26/19 10:52 Epinephrine HCl (Adrenalin) Confirm Administered Dose 1 mg .ROUTE .STK-MED ONE Stop: 10/26/19 07:11 Famotidine (Pepcid) 20 mg PO Q12H [facility] Last Admin: 10/26/19 11:49 Dose: Not Given Documented by: Famotidine (Pepcid) 20 mg PO Q12H [facility] Fentanyl (Sublimaze) Confirm Administered Dose 0 mcg .ROUTE .STK-MED ONE Stop: 10/26/19 06:43 Fentanyl (Sublimaze) 100 mcg IVPUSH ONETIME PRN PRN Reason: Pain Stop: 10/26/19 12:00 Glycopyrrolate () Confirm Administered Dose 1 mg .ROUTE .STK-MED ONE Stop: 10/26/19 07:36 Hydromorphone HCl (Dilaudid) 0.5 mg IVPUSH ONETIME PRN PRN Reason: Pain (severe 7-10) Stop: 10/26/19 12:00 Lactated Ringer's (Ringers, Lactated) 1,000 mls @ 125 mls/hr IV ASDIRECTED [facility] Stop: 10/26/19 23:00 Last Admin: 10/26/19 07:45 Dose: 125 mls/hr Documented by: Cefazolin Sodium/Dextrose 2 gm (/ Premix) 50 mls @ 100 mls/hr IV Q8H [facility] Stop: 10/27/19 07:59 Last Admin: 10/27/19 06:30 Dose: 100 mls/hr Documented by: Lidocaine HCl (Xylocaine-Mpf 1%) Confirm Administered Dose 0 mls @ as directed .ROUTE .STK-MED ONE Stop: 10/26/19 06:44 Lidocaine HCl (Xylocaine-Mpf 1%) Confirm Administered Dose 4 mls @ as directed .ROUTE .STK-MED ONE Stop: 10/26/19 07:06 Lactated Ringer's (Ringers, Lactated) Confirm Administered Dose 1,000 mls @ as directed .ROUTE .STK-MED ONE Stop: 10/26/19 08:52 Lidocaine HCl (Xylocaine-Mpf 1%) Confirm Administered Dose 4 mls @ as directed .ROUTE .STK-MED ONE Stop: 10/26/19 10:10 Iodine (Iodine 2% Mild Tincture) Confirm Administered Dose 30 ml .ROUTE .STK-MED ONE Stop: 10/26/19 07:13 Last Admin: 10/26/19 09:21 Dose: 18 ml Documented by: Ketamine HCl (Ketalar) Confirm Administered Dose 0 mg .ROUTE .STK-MED ONE Stop: 10/26/19 06:44 Lidocaine/Sodium Bicarbonate (Buffered Lidocaine 1% In Ns 8.4%) 0.25 ml IDERM ONETIME PRN PRN Reason: Prior to IV Start Stop: 10/26/19 18:00 Last Admin: 10/26/19 07:45 Dose: 0.25 ml Documented by: Losartan Potassium (Cozaar) 50 mg PO DAILY [facility] Midazolam HCl (Versed 1 Mg/Ml) Confirm Administered Dose 0 mg .ROUTE .ST-MED ONE Stop: 10/26/19 06:44 Midazolam HCl (Versed 1 Mg/Ml) Confirm Administered Dose 2 mg .ROUTE .STK-MED ONE Stop: 10/26/19 07:06 Miscellaneous Medication (Phenylephrine 1 Mg/10 Ml-Ns) Confirm Administered Dose 1 mg IV .STK-MED ONE Stop: 10/26/19 08:38 Miscellaneous Medication (Phenylephrine 1 Mg/10 Ml-Ns) Confirm Administered Dose 1 mg IV .STK-MED ONE Stop: 10/26/19 09:32 Oxycodone HCl (Oxycontin) 10 mg PO ONETIME [facility] Stop: 10/26/19 14:00 Last Admin: 10/26/19 07:23 Dose: 10 mg Documented by: Pregabalin (Lyrica) 50 mg PO ONETIME [facility] Stop: 10/26/19 14:00 Last Admin: 10/26/19 07:23 Dose: 50 mg Documented by: Propofol (Diprivan 20 Ml) Confirm Administered Dose 0 mg .ROUTE .STK-MED ONE Stop: 10/26/19 06:43 Propofol (Diprivan 20 Ml) Confirm Administered Dose 400 mg .ROUTE .STK-MED ONE Stop: 10/26/19 07:06 Ropivacaine (Naropin 0.5%) Confirm Administered Dose 30 ml .ROUTE .STK-MED ONE Stop: 10/26/19 07:45 Sodium Chloride (Saline Flush) 10 ml FLUSH ASDIRECTED PRN PRN Reason: Keep Vein Open Stop: 10/26/19 18:00 Tranexamic Acid (Cyklokapron) Confirm Administered Dose 1,000 mg .ROUTE .[employer]-MED ONE Stop: 10/26/19 07:13 Last Admin: 10/26/19 09:32 Dose: 1,000 mg Documented by: Triamcinolone Acetonide (Kenalog-40) Confirm Administered Dose 80 mg .ROUTE .[employer]-MED ONE Stop: 10/26/19 07:28 Last Admin: 10/26/19 09:50 Dose: 80 mg Documented by: Vancomycin HCl (Vancomycin) Confirm Administered Dose 1 gm .ROUTE .[employer]-MED ONE Stop: 10/26/19 07:13
[2019-10-27] MEDS: Docusate Sodium 100 MG Cap PO SCH (09:38)
[2019-10-27] MEDS: Morphine 2 MG/ML SYRINGE IVPUSH PRN (09:39)
[2019-10-27 18:18] VITALS: BP 157/79; PULSE 91
--- NOTE | 2019-11-02 07:26 | PCM.OPNOTE ---
- General Post-Op/Procedure Note Date of Surgery/Procedure: 10/26/19 Operative Procedure(s): left total knee arthroplasty with right hip greater troch injection Pre Op Diagnosis: left knee osteoarthrosis with right hip greater trochanteric bursitis Post-Op Diagnosis: Same Anesthesia Technique: Local, MAC, Spinal Primary Surgeon: Miek Gonzalez Anesthesia Provider: Vinay Jeong Bone Drier: Tiffanie Boyle Bone Drier: Lyn Nash EBKadie in mLs: 5 Complications: None Condition: Good Free Text/Narrative:: 3 femur press fit 3 tibia cemented 29x9 cemented patella 9mm CS
--- NOTE | 2019-11-02 08:42 | OR ---
DATE OF OPERATION: 10/26/2019 SURGEON: Mike Gonzalez MD OPERATION PERFORMED: Left total knee arthroplasty with right hip greater trochanteric injection. PREOPERATIVE DIAGNOSIS: Left knee osteoarthrosis with right hip greater trochanteric bursitis. POSTOPERATIVE DIAGNOSIS: Left knee osteoarthrosis with right hip greater trochanteric bursitis. ANESTHESIA: Local MAC with spinal. ANESTHESIA PROVIDER: Gaviota Oliveira. ASSISTANTS: Tiffanie Boyle PA-C and Lyn Nash LPN. ESTIMATED BLOOD LOSS: 5 mL. COMPLICATIONS: None. CONDITION: Stable. IMPLANTS: 1. Pampa size 3 press-fit femur. 2. Pampa size 3 cemented Foster tibial baseplate. 3. Rochelle size 3, 9 mm CS polyethylene insert. 4. Pampa size 29 x 9 mm cemented asymmetric patella. DESCRIPTION OF PROCEDURE: The patient was identified in the preop holding area. Proper site was marked and identified by the surgeon. The patient was taken back to the operating theater. After adequate anesthesia, the patient's left lower extremity had a nonsterile tourniquet applied and it was sterilely prepped and draped in the usual sterile fashion. OR time-out was performed. The patient received 2 g IV Ancef. At this time, the left lower extremity was exsanguinated. Tourniquet was insufflated to 300 mmHg. Standard medial parapatellar incision was made. Medial parapatellar arthrotomy was created. Deep fibers of the MCL were raised and anterior fat pad was resected. At this time, attention was turned to the patella. Patella measured 21, it was resected to a 13 for 29 x 9 mm patella. Drill holes were then drilled and found to be in adequate position. The drill was then drilled in the distal femur and the intramedullary distal femoral cutting guide was then placed. 8 mm was resected off the distal femur and was found to be an adequate resection. Sizing guide was placed. It was found to be a size 3 press-fit CR femur that was shown on the implant record at the beginning of this dictation. The drill holes were drilled for the epicondylar axis using Whitesides line and epicondyles as reference. At this time, the 4-in- 1 cutting block was placed. An anterior posterior and anterior and posterior chamfer cuts were then completed. Attention was turned to the tibia. The posterior medial lateral retractors were placed. The extramedullary tibial guide was placed. It was placed in the old footprint of the ACL. It was aligned with the center of the ankle and 0 degrees of slope, 9 mm was then resected off the unaffected side. There was found to be an acceptable reduction. At this time, posterior osteophytes were removed along with medial and lateral meniscus. A trial implant was placed with a correct sized tibia that was mentioned at the beginning of the dictation. A Rochelle size 3, 9 mm CS polyethylene insert was then placed. The patient's knee was brought through range of motion. The patella was tracking centrally and was stable to varus and valgus stress. Alignment was found to be roughly at 0 degrees. The tibia was stamped and drilled in proper rotation. It was decided to cement the patella and tibia due to their bone quality. The universal tibial base plate was impacted in place. Next, the Rochelle size 3 press-fit CR femur impacted into place and the Pampa size 3, 9 mm CS polyethylene insert was placed. The patient's knee was brought into full extension. The patella was then press-fit in place at this time. One liter dilute Betadine solution was irrigated through the knee along with 3 L of pulse lavage irrigation with Ancef. Periarticular injection was then completed. The patient's knee was brought through a range of motion. Once the cement had time to set up and it was found to be stable to varus valgus stress, the patella was tracking centrally with full range of motion. At this time, a #2 barbed suture was used for closure of the medial parapatellar arthrotomy. Topical tranexamic acid was placed. 2-0 Vicryl was used subcutaneously, Prineo was used for the skin. After this was completed under sterile technique, 2 mL of 40 mg Kenalog and 4 mL of 0.25% Marcaine were injected to the right hip. The patient tolerated all the procedures well and was sent to the PACU in stable condition. UBALDO /[id number] GARY
== END 2019-10-27 15:00 | disposition home or self-care (01) | DRG 470 ==
LOC: JD.SDS 06:54 → JD.MS 06:55 → JD.OB 07:00 → JD.SDS 10:30 → JD.MS 11:23
PROVIDERS: ADMIT Orthopaedic Surgery; ATTEND Orthopaedic Surgery
PROC: 0SRD0JZ Replacement of Left Knee Joint with Synthetic Substitute, Open Approach (ICD-10-PCS; principal; 2019-10-26)
DX: M17.12 Unilateral primary osteoarthritis, left knee (principal); K21.9 Gastro-esophageal reflux disease without esophagitis; I10 Essential (primary) hypertension; E78.5 Hyperlipidemia, unspecified; J45.909 Unspecified asthma, uncomplicated; Z88.8 Allergy status to other drugs, medicaments and biological substances; E87.6 Hypokalemia; M85.80 Other specified disorders of bone density and structure, unspecified site; D64.9 Anemia, unspecified; R31.29 Other microscopic hematuria
CPT/HCPCS: 01402; 36415; 64450; 73560-26-LT; 73560-LT; 80053; 85027; 87641; 97110-GP; 97116-GP; 97161-GP; 97165-GO; 97535-GO; 99221; 99231; A9270-GY; C1713; C1776; J0171; J0690; J0697; J1100; J2001; J2250; J2270; J2370; J2704; J2795; J3010; J3301; J3370; J3490; J7120; U0002

== ENCOUNTER → 2019-12-03 | Day surgery (SDC) | payer OTHER ==
[~2019-12-03] MED LIST changes: -Acetaminophen 325 MG Tab PO SCH; +Acetaminophen/oxyCODONE 325-5 MG Tab PO PRN; -Bisacodyl 5 MG Tab PO PRN; -Dexamethasone 4 MG/ML 5 ML MDV ONE; -Famotidine 20 MG Tab PO SCH; +HYDROmorphone 0.5 MG/0.5 ML Syringe ONE; +Lactated Ringers 1,000 ML IV SCH; -Lidocaine 1% 0 ML ONE; +Lidocaine 1% 4 ML ONE; +Lidocaine 1%/Sod Bicarbonate in NS 8.4% 1 ML Syringe IDERM PRN; -Magnesium Hydroxide 400 MG/5 ML Susp 30 ML Cup PO PRN; -Naloxone 0.4 MG/ML SDV IVPUSH PRN; +Ondansetron 4 MG/2 ML SDV ONE; -Pregabalin 25 MG Cap PO SCH; -Sennosides 8.6 MG Tab PO PRN; +Sodium Chloride 0.9% 10 ML Syringe FLUSH PRN; -oxyCODONE ER 10 MG TAB.ER PO SCH
--- NOTE | 2019-12-03 06:56 | PCM.PREANE ---
Preanesthetic Assessment - Procedure Proposed Procedure: Left Knee Manipulation - Anesthesia/Transfusion/Family Hx Anesthesia History: Prior Anesthesia Without Reaction Family History of Anesthesia Reaction: No Transfusion History: No Prior Transfusion(s) - Review of Systems General: No Symptoms Pulmonary: No Symptoms Cardiovascular: No Symptoms Gastrointestinal: Other (GERD, took prilosec at 0513 this morning. ) Neurological: No Symptoms Other: Reports: None - Physical Assessment NPO Status Date: 12/02/19 NPO Status Time: 23:15 Vital Signs: 154/86 86 20 98% 97.4F Weight: 60 kg ASA Class: 2 Mental Status: Alert & Oriented x3 Airway Class: Mallampati = 1 Dentition: Reports: Normal Dentition Thyro-Mental Finger Breadths: 2 Mouth Opening Finger Breadths: 3 ROM/Head Extension: Full Lungs: Clear to Auscultation, Normal Respiratory Effort Cardiovascular: Regular Rate, Regular Rhythm - Lab Values: Laboratory Last Values COVID-19 PCR Not detected (NOT DETECT) 11/30/19 10:45 MRSA (PCR) Negative 11/24/19 15:03 - Allergies Allergies/Adverse Reactions: Allergies Allergy/AdvReac Type Severity Reaction Status Date / Time amoxicillin Allergy Vomiting Verified 10/26/19 11:38 NSAIDS (Non-Steroidal Allergy Anaphylactic Verified 10/26/19 11:38 Anti-Inflamma Shock amoxicillin trihydrate AdvReac Vomiting Verified 10/26/19 11:38 [From Augmentin] potassium clavulanate AdvReac Vomiting Verified 10/26/19 11:38 [From Augmentin] - Acknowledgements Anesthesia Type Planned: MAC Pt an Appropriate Candidate for the Planned Anesthesia: Yes Alternatives and Risks of Anesthesia Discussed w Pt/Guardian: Yes Pt/Guardian Understands and Agrees with Anesthesia Plan: Yes PreAnesthesia Questionnaire HEENT History: Reports: Allergic Rhinitis, Otitis Media, Other (See Below) Other HEENT History: wears glasses, TMJ arthralgia, eustachian tube dysfunction Cardiovascular History: Reports: High Cholesterol, Hypertension, Other (See Below) Other Cardiovascular History: varicose veins, chest pain Respiratory History: Reports: Asthma Gastrointestinal History: Reports: GERD Genitourinary History: Reports: Renal Calculus, Other (See Below) Other Genitourinary History: hematuria 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: Ectopic , , Spontaneous Other OB/BYN History: Bilateral breast reduction Musculoskeletal History: Reports: Other (See Below) Other Musculoskeletal History: calcaneal spur, plantar fascial fibromatosis, rotator cuff syndrome, foot/ankle tenosynovitis Neurological History: Reports: Other (See Below) Other Neuro History: Bulging 5 and 6 discs Psychiatric History: Reports: None Endocrine/Metabolic History: Reports: Osteopenia Hematologic History: Reports: Anemia Immunologic History: Reports: None Oncologic (Cancer) History: Reports: None Dermatologic History: Reports: Other (See Below) Other Dermatologic History: actinic keratosis, skin neoplasm, nevus, viral warts, soft tissue excision - Infectious Disease History Infectious Disease History: Reports: None - Past Surgical History Head Surgeries/Procedures: Reports: None Other HEENT Surgeries/Procedures: radial keratotomy Cardiovascular Surgical History: Reports: None Respiratory Surgical History: Reports: None GI Surgical History: Reports: Colonoscopy Female Surgical History: Reports: Breast Reduction, Tubal Ligation Male Surgical History: Reports: None Endocrine Surgical History: Reports: None Neurological Surgical History: Reports: None Musculoskeletal Surgical History: Reports: Joint Replacement, Shoulder Surgery, Other (See Below) Other Musculoskeletal Surgeries/Procedures:: orif R ankle with gar chau 05/11/14; R toe broken 09/2014. carpal tunnel bilateral wrist 2001. Right Shoulder replacement 03/2018. Rotator tear surgery right shoulder - 2008 Oncologic Surgical History: Reports: None Dermatological Surgical History: Reports: None - SUBSTANCE USE Smoking Status *Q: Never Smoker Recreational Drug Use History: No - HOME MEDS Home Medications: Home Meds Hydrochlorothiazide 12.5 mg PO DAILY 01/23/17 [History] Losartan [Cozaar] 50 mg PO DAILY 01/23/17 [History] Omeprazole 20 mg PO DAILY 01/23/17 [History] Cholecalciferol (Vitamin D3) [Vitamin D] 5,000 units PO DAILY 03/27/18 [History] Cetirizine [ZyrTEC] 10 mg PO DAILY PRN 10/23/19 [History] Vitamin B Complex 1 tab PO DAILY 10/26/19 [History] Acetaminophen/oxyCODONE [Percocet 325-5 MG] 1 - 2 tab PO Q4H PRN #40 tablet 12/03/19 [Rx] - CURRENT (IN HOUSE) MEDS Current Meds: Current Medications Lactated Ringer's (Ringers, Lactated) 1,000 mls @ 125 mls/hr IV ASDIRECTED [facility] Stop: 12/03/19 23:00 Lidocaine/Sodium Bicarbonate (Buffered Lidocaine 1% In Ns 8.4%) 0.25 ml IDERM ONETIME PRN PRN Reason: Prior to IV Start Stop: 12/03/19 18:00 Sodium Chloride (Saline Flush) 10 ml FLUSH ASDIRECTED PRN PRN Reason: Keep Vein Open Stop: 12/03/19 18:00 Discontinued Medications Fentanyl (Sublimaze) Confirm Administered Dose 100 mcg .ROUTE .STK-MED ONE Stop: 12/03/19 06:42 Hydromorphone HCl (Dilaudid) Confirm Administered Dose 0.5 mg .ROUTE .STK-MED ONE Stop: 12/03/19 06:41 Lidocaine HCl (Xylocaine-Mpf 1%) Confirm Administered Dose 4 mls @ as directed .ROUTE .STK-MED ONE Stop: 12/03/19 06:42 Midazolam HCl (Versed 1 Mg/Ml) Confirm Administered Dose 2 mg .ROUTE .STK-MED ONE Stop: 12/03/19 06:42 Ondansetron HCl (Zofran) Confirm Administered Dose 4 mg .ROUTE .STK-MED ONE Stop: 12/03/19 06:41 Propofol (Diprivan 20 Ml) Confirm Administered Dose 400 mg .ROUTE .STK-MED ONE Stop: 12/03/19 06:42
--- NOTE | 2019-12-03 07:30 | PCM48HPAN ---
Post Anesthesia Note - EVALUATION WITHIN 48HRS OF ANESTHETIC Vital Signs in Normal Range: Yes Patient Participated in Evaluation: Yes Respiratory Function Stable: Yes Airway Patent: Yes Cardiovascular Function Stable: Yes Hydration Status Stable: Yes Pain Control Satisfactory: No (IV dilaudid ordered) Nausea and Vomiting Control Satisfactory: Yes Mental Status Recovered: Yes Vital Signs: Last Vital Signs Temp 36.3 C 12/03/19 06:15 Pulse 86 12/03/19 06:15 Resp 20 12/03/19 06:15 BP 154/86 H 12/03/19 06:15 Pulse Ox 98 12/03/19 06:15
[2019-12-03] MEDS: fentaNYL 100 MCG/2 ML SDV IVPUSH PRN ×2 (07:32→07:46)
[2019-12-03] MEDS: HYDROmorphone 0.5 MG/0.5 ML Syringe IVPUSH PRN ×2 (07:38→07:59)
[2019-12-03 08:38] VITALS: PULSE 77
[2019-12-03 10:17] VITALS: BP 14/74
--- NOTE | 2019-12-06 21:27 | PCM.OPNOTE ---
- General Post-Op/Procedure Note Date of Surgery/Procedure: 12/03/19 Operative Procedure(s): manipulation of left total knee arthroplasty under anesthesia Pre Op Diagnosis: left total knee arthrofibrosis Post-Op Diagnosis: Same Anesthesia Technique: MAC Primary Surgeon: Mike Gonzalez Anesthesia Provider: Jayne Rust Hod Carrier: Tiffanie Boyle in mLs: 0 Complications: None Condition: Good
--- NOTE | 2019-12-06 22:24 | OR ---
DATE OF OPERATION: 12/03/2019 SURGEON: Mike Gonzalez MD OPERATION PERFORMED: Manipulation of left total knee arthroplasty under anesthesia. PREOPERATIVE DIAGNOSIS: Left total knee arthrofibrosis. POSTOPERATIVE DIAGNOSIS: Left total knee arthrofibrosis. ANESTHESIA: MAC sedation. ANESTHESIA PROVIDER: Torrie Sierra. DEPARTMENT SALES MANAGER: Tiffanie Boyle PA-C. ESTIMATED BLOOD LOSS: Not applicable. COMPLICATIONS: None. CONDITION: Stable. DESCRIPTION OF PROCEDURE: The patient was identified in the preoperative holding area. Proper site was marked and identified by the surgeon. The patient was taken back to the operative theater where after adequate anesthesia a time-out was performed. At this time, pre-manipulation motion was noted to be 4 to 55 degrees. The patient had a hard stop at 55, and once I was able to get past that I was able to get the patient all the way to 140 degrees. Final manipulation motion was 2 to 140 degrees, stable throughout, with no signs of crepitations or instability noted. The patient was sent to the PACU in stable condition. MMODAL /[id number]
== END | disposition home or self-care (01) ==
LOC: JD.SDS 06:15
PROVIDERS: ATTEND Orthopaedic Surgery
DX: M24.662 Ankylosis, left knee (principal); M17.12 Unilateral primary osteoarthritis, left knee; J45.909 Unspecified asthma, uncomplicated; K21.9 Gastro-esophageal reflux disease without esophagitis; I10 Essential (primary) hypertension; E78.5 Hyperlipidemia, unspecified; E78.00 Pure hypercholesterolemia, unspecified; Z01.812 Encounter for preprocedural laboratory examination; Z88.0 Allergy status to penicillin; Z88.8 Allergy status to other drugs, medicaments and biological substances; Z79.899 Other long term (current) drug therapy; Z20.828 Contact with and (suspected) exposure to other viral communicable diseases
CPT/HCPCS: 27447; 87635; 87641; A9270; J1170; J2001; J2250; J2405; J2704; J3010; J7120; 01380; U0002

== ENCOUNTER 2020-06-23 08:33 | Day surgery (SDC) | payer BC, OTHER ==
[~2020-06-23 08:33] MED LIST changes: -Acetaminophen/oxyCODONE 325-5 MG Tab PO PRN; +EPINEPHrine 1 MG/ML 30 ML MDV IRR SCH; -HYDROmorphone 0.5 MG/0.5 ML Syringe ONE; -Ketamine 500 mg/10 ML MDV ONE; -Lidocaine 1% 4 ML ONE; -Midazolam 1 MG/ML 2 ML SDV ONE; -Ondansetron 4 MG/2 ML SDV IVPUSH PRN; -Ondansetron 4 MG/2 ML SDV ONE; -Propofol 200 MG/20 ML SDV ONE; -fentaNYL 100 MCG/2 ML SDV ONE
--- NOTE | 2020-06-23 09:47 | PCM.PREANE ---
Preanesthetic Assessment - Procedure Proposed Procedure: Left knee video arthroscopy - Anesthesia/Transfusion/Family Hx Anesthesia History: Prior Anesthesia Without Reaction Family History of Anesthesia Reaction: No Transfusion History: No Prior Transfusion(s) - Review of Systems General: No Symptoms Pulmonary: No Symptoms Cardiovascular: No Symptoms Gastrointestinal: No Symptoms Neurological: No Symptoms Other: Reports: None - Physical Assessment NPO Status Date: 06/22/20 NPO Status Time: 00:00 Vital Signs: Last Vital Signs Temp 36.3 C 06/23/20 08:30 Pulse 76 06/23/20 08:30 Resp 17 06/23/20 08:30 BP 112/96 H 06/23/20 08:30 Pulse Ox 100 06/23/20 08:30 Height: 1.65 m Weight: 61.235 kg ASA Class: 2 Mental Status: Alert & Oriented x3 Airway Class: Mallampati = 1 Dentition: Reports: Normal Dentition Thyro-Mental Finger Breadths: 3 Mouth Opening Finger Breadths: 3 ROM/Head Extension: Full Lungs: Clear to Auscultation, Normal Respiratory Effort Cardiovascular: Regular Rate, Regular Rhythm - Lab Values: Laboratory Last Values MRSA (PCR) Negative 06/08/20 15:34 - Allergies Allergies/Adverse Reactions: Allergies Allergy/AdvReac Type Severity Reaction Status Date / Time NSAIDS (Non-Steroidal Allergy Anaphylactic Verified 06/23/20 08:34 Anti-Inflamma Shock amoxicillin AdvReac Vomiting Verified 06/23/20 08:34 amoxicillin trihydrate AdvReac Vomiting Verified 06/23/20 08:34 [From Augmentin] potassium clavulanate AdvReac Vomiting Verified 06/23/20 08:34 [From Augmentin] - Blood Blood Available: No Product(s) Available: None - Anesthesia Plan Pre-Op Medication Ordered: None - Acknowledgements Anesthesia Type Planned: General Anesthesia Pt an Appropriate Candidate for the Planned Anesthesia: Yes Alternatives and Risks of Anesthesia Discussed w Pt/Guardian: Yes Pt/Guardian Understands and Agrees with Anesthesia Plan: Yes PreAnesthesia Questionnaire HEENT History: Reports: Allergic Rhinitis, Otitis Media, Other (See Below) Other HEENT History: wears glasses, TMJ arthralgia, eustachian tube dysfunction Cardiovascular History: Reports: High Cholesterol, Hypertension, Other (See Below) Other Cardiovascular History: varicose veins, chest pain Respiratory History: Reports: Asthma Gastrointestinal History: Reports: GERD Genitourinary History: Reports: Renal Calculus, Other (See Below) Other Genitourinary History: hematuria 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 , , Spontaneous Other OB/BYN History: Bilateral breast reduction Musculoskeletal History: Reports: Other (See Below) Other Musculoskeletal History: calcaneal spur, plantar fascial fibromatosis, rotator cuff syndrome, foot/ankle tenosynovitis Neurological History: Reports: Other (See Below) Other Neuro History: Bulging 5 and 6 discs Psychiatric History: Reports: None Endocrine/Metabolic History: Reports: Osteopenia Hematologic History: Reports: Anemia Immunologic History: Reports: None Oncologic (Cancer) History: Reports: None Dermatologic History: Reports: Other (See Below) Other Dermatologic History: actinic keratosis, skin neoplasm, nevus, viral warts, soft tissue excision - Infectious Disease History Infectious Disease History: Reports: None - Past Surgical History Head Surgeries/Procedures: Reports: None Other HEENT Surgeries/Procedures: radial keratotomy Cardiovascular Surgical History: Reports: None Respiratory Surgical History: Reports: None GI Surgical History: Reports: Colonoscopy Female Surgical History: Reports: Breast Reduction, Tubal Ligation Male Surgical History: Reports: None Endocrine Surgical History: Reports: None Neurological Surgical History: Reports: None Musculoskeletal Surgical History: Reports: Joint Replacement, Shoulder Surgery, Other (See Below) Other Musculoskeletal Surgeries/Procedures:: orif R ankle with gar chau 05/11/14; R toe broken 09/2014. carpal tunnel bilateral wrist 2001. Right Shoulder replacement 03/2018. Rotator tear surgery right shoulder - 2008 Oncologic Surgical History: Reports: None Dermatological Surgical History: Reports: None - SUBSTANCE USE Tobacco Use Status *Q: Never Tobacco User Tobacco Use Within Last Twelve Months: No Second Hand Smoke Exposure: No Days Per Week of Alcohol Use: 0 Number of Drinks Per Day: 0 Total Drinks Per Week: 0 Recreational Drug Use History: No - HOME MEDS Home Medications: Home Meds Hydrochlorothiazide 12.5 mg PO DAILY 01/23/17 [History] Losartan [Cozaar] 50 mg PO DAILY 01/23/17 [History] Omeprazole 20 mg PO DAILY 01/23/17 [History] Cholecalciferol (Vitamin D3) [Vitamin D] 5,000 units PO DAILY 03/27/18 [History] Cetirizine [ZyrTEC] 10 mg PO DAILY PRN 10/23/19 [History] Fish Oil/[place]-3 Fatty Acids [Fish Oil 1,000 MG] 1,000 mg PO DAILY 12/03/19 [History] clindamycin HCL [Cleocin] 300 mg PO ASDIRECTED 12/03/19 [History] Cyclobenzaprine [Flexeril] 10 mg PO BID PRN 06/22/20 [History] Gabapentin [Gralise] 600 mg PO BEDTIME 06/22/20 [History] Rivaroxaban [Xarelto] 10 mg PO DAILY #30 tab 06/23/20 [Rx] oxyCODONE 5 - 10 mg PO Q6H PRN #30 tab 06/23/20 [Rx]
[2020-06-23] MEDS ORDERED: Ondansetron 4 MG/2 ML SDV ONE (09:58)
[2020-06-23] MEDS ORDERED: Propofol 200 MG/20 ML SDV ONE (09:59)
[2020-06-23] MEDS ORDERED: Midazolam 1 MG/ML 2 ML SDV ONE (09:59)
[2020-06-23] MEDS ORDERED: fentaNYL 250 MCG/5 ML SDV ONE (09:59)
[2020-06-23] MEDS ORDERED: Lidocaine 1% 4 ML ONE (09:59)
[2020-06-23] MEDS ORDERED: ceFAZolin 1 GM Vial ONE (10:11)
[2020-06-23] MEDS ORDERED: Lactated Ringers 1,000 ML ONE (10:13)
[2020-06-23] MEDS: Triamcinolone Acetonide 40 MG/ML 1 ML SDV ONE ×2 (10:36→10:48)
[2020-06-23] MEDS: Bupivacaine 0.25% 10 ML SDV ONE ×2 (10:36→10:48)
[2020-06-23] MEDS ORDERED: fentaNYL 100 MCG/2 ML SDV IVPUSH PRN (11:02)
--- NOTE | 2020-06-23 11:03 | PCM.POSTAN ---
POST ANESTHESIA ASSESSMENT - MENTAL STATUS Mental Status: Alert, Oriented - VITAL SIGNS Vital Signs: Last Vital Signs Temp 36.6 C 06/23/20 10:57 Pulse 76 06/23/20 08:30 Resp 12 06/23/20 10:57 BP 109/64 06/23/20 10:57 Pulse Ox 94 L 06/23/20 10:57 - RESPIRATORY Respiratory Status: Respiratory Rate WNL, Airway Patent, O2 Saturation Stable - CARDIOVASCULAR CV Status: Pulse Rate WNL, Blood Pressure Stable - GASTROINTESTINAL GI Status: No Symptoms - PAIN Pain Score: 0 - POST OP HYDRATION Hydration Status: Adequate & Stable
--- NOTE | 2020-06-23 11:04 | PCM.OPNOTE ---
- General Post-Op/Procedure Note Date of Surgery/Procedure: 06/23/20 Operative Procedure(s): left knee video arthroscopy with partial synovectomy Pre Op Diagnosis: left total knee arthrofibrosis and pain Post-Op Diagnosis: Same Anesthesia Technique: General LMA, Local Primary Surgeon: Mike Gonzalez Anesthesia Provider: Isaac Buck Resistor Tester: Tiffanie Boyle in mLs: 5 Complications: None Condition: Good
[2020-06-23] MEDS ORDERED: Ropivacaine 0.5% 5 MG/ML 30 ML SDV ONE (11:07)
--- NOTE | 2020-06-23 11:36 | PCM.SN.2 ---
- Free Text/Narrative Note: Left selective femoral nerve block at the adductor canal for post-procedure pain control under US guidance requested by Dr. Gonzalez. Time Out: 1121 Start: 1121 End: 1128 Chart reviewed. Consent signed. Questions answered. Appropriate monitors applied. Time out performed. Left mid-shaft femur identified with ultrasound, scanning medially of femur, the femoral artery in the adductor canal visualized, and the femoral nerve located laterally to the artery. The skin was prepped lateral to the ultrasound probe with chlorahexadine times two. The 21ga 4 insulated block needle was inserted under direct ultrasound guidance into the adductor canal. 25mL of 0.5% ropivacaine with 1:200,000 epinephrine was injected circumferentially around the nerve with intermittent negative aspiration noted. Patient tolerated the procedure well. Sterile technique noted along with sterile gloves, mask, and sterile probe cover. See picture on progress note and vital signs on nurses notes. Block completed in PACU. Isaac Buck CRNA
[2020-06-23] MEDS ORDERED: oxyCODONE 5 MG Tab PO PRN (11:56)
[2020-06-23 12:50] VITALS: BP 127/91; PULSE 81
--- NOTE | 2020-06-23 13:12 | PCM48HPAN ---
Post Anesthesia Note - EVALUATION WITHIN 48HRS OF ANESTHETIC Vital Signs in Normal Range: Yes Patient Participated in Evaluation: Yes Respiratory Function Stable: Yes Airway Patent: Yes Cardiovascular Function Stable: Yes Hydration Status Stable: Yes Pain Control Satisfactory: Yes Nausea and Vomiting Control Satisfactory: Yes Mental Status Recovered: Yes Vital Signs: Last Vital Signs Temp 36.6 C 06/23/20 10:57 Pulse 81 06/23/20 12:30 Resp 16 06/23/20 12:30 BP 127/91 H 06/23/20 12:30 Pulse Ox 98 06/23/20 12:30
--- NOTE | 2020-07-06 07:57 | OR ---
DATE OF OPERATION: 06/23/2020 SURGEON: Mike Gonzalez MD OPERATION PERFORMED: Left knee video arthroscopy, partial synovectomy. PREOPERATIVE DIAGNOSIS: Left total knee arthrofibrosis and pain. POSTOPERATIVE DIAGNOSIS: Left total knee arthrofibrosis and pain. ANESTHESIA: General LMA with local. ANESTHESIA PROVIDER: Bill Ordonez. BAKER PIE: Tiffanie Boyle PA-C ESTIMATED BLOOD LOSS: Less than 5 mL. COMPLICATIONS: None. CONDITION: Stable. DESCRIPTION OF PROCEDURE: The patient was identified in the preoperative holding area. Proper site was marked and identified by surgeon. The patient was taken back to the operative theater, where after adequate anesthesia, the patient's right lower extremity was placed in a well leg solis. Left lower extremity was placed in a C-clamp solis after a nonsterile tourniquet was applied. Foot of the bed was then lowered. Left lower extremity was then sterilely prepped and draped in the usual sterile fashion. OR time-out was performed. The patient received 2 g IV Ancef. Left lower extremity was exsanguinated and tourniquet was insufflated to 250 mmHg. Standard anterior lateral portal incision was made. Scope trocar was introduced into the patellofemoral joint. The patellar button showed no signs of erythema and no signs of significant overgrowth. There was noted to be scar tissue noted in the medial and lateral gutter as well as the suprapatellar pouch. At this time, attention was turned to the medial compartment. With the use of spinal needle, anteromedial portal was created. At this time, the patient was noted to have scar tissue noted in the medial gutter. The 4-0 full- radius resector was then placed and resection of the synovium and scar tissue was done in the medial gutter as well as the notch and then the lateral compartment. Next, the suprapatellar pouch was cleared of any scar tissue. At this time, it was found to be adequately rid of scar tissue at this time, and excess saline was drained from the knee. Once the patient had closure done with 3-0 nylon and a sterile soft dressing applied, I did manipulate the patient's knee and she was able to get to 125 degrees of flexion easily with no significant arthrofibrosis. At this time, the patient was sent to the PACU in stable condition. MMODAL /[id number]
--- NOTE | 2020-08-04 05:42 | OR ---
DATE OF OPERATION: 06/23/2020 SURGEON: Mike Gonzalez MD ADDENDUM: The patient also underwent a right hip greater trochanteric injection, so under sterile technique after the procedure, 2 mL of 40 mg Kenalog and 4 mL of 0.25% Marcaine was injected in the patient's right hip. She tolerated all procedures well. MMODAL /[id number]
== END 2020-06-23 12:44 | disposition home or self-care (01) ==
LOC: JD.SDS 08:33
PROVIDERS: ATTEND Orthopaedic Surgery
DX: M17.12 Unilateral primary osteoarthritis, left knee (principal); M24.662 Ankylosis, left knee; M70.61 Trochanteric bursitis, right hip; I10 Essential (primary) hypertension; E78.5 Hyperlipidemia, unspecified; Z88.1 Allergy status to other antibiotic agents; Z88.8 Allergy status to other drugs, medicaments and biological substances; Z91.011 Allergy to milk products; Z91.09 Other allergy status, other than to drugs and biological substances; Z96.652 Presence of left artificial knee joint; J45.909 Unspecified asthma, uncomplicated; Z79.899 Other long term (current) drug therapy; Z98.890 Other specified postprocedural states
CPT/HCPCS: 29875; 87641; A9270; J0690; J2250; J2405; J2704; J2795; J3010; J3301; J3490; J7120; 01400; 64450; 76942

== ENCOUNTER 2020-11-15 17:53 | Emergency (ER) | payer BC ==
[2020-11-15 18:11] VITALS: BP 155/89; PULSE 82
--- NOTE | 2020-11-15 18:29 | EDM.PDOC ---
ED HPI GENERAL MEDICAL PROBLEM - General Chief Complaint: Lower Extremity Injury/Pain Stated Complaint: POSSIBLE BLOOD CLOT/SENT BY [facility] Time Seen by Provider: 11/15/20 18:01 Source of Information: Reports: Patient, RN Notes Reviewed History Limitations: Reports: No Limitations - History of Present Illness INITIAL COMMENTS - FREE TEXT/NARRATIVE: Patient is a 60-year-old female who presents to the ER for the evaluation of her left leg pain/swelling. Patient states that for the last 6 days or so, she is having some sharp lower extremity calf pain, that seems to extend up into her knee. There is quite a bit of swelling about the knee, but no redness associated with this. She denies any traumatic injury, to the area. She is not taking any sort of pain medications for this. 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 She has had a total knee replacement of the left knee. Patient states that she is not traveled anywhere for prolonged amounts of time, so she is not sad or been immobile for long amounts of time as well. 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 But again has not been doing this recently. Patient denies any other sick-like symptoms, fever/chills, cough/shortness of breath, nausea/vomiting/diarrhea. Patient describes the pain as a charley horse that just really never goes away. Left Lower Leg Pain Score (Numeric/FACES): 9 - Related Data Allergies Allergy/AdvReac Type Severity Reaction Status Date / Time NSAIDS (Non-Steroidal Allergy Severe Anaphylactic Verified 11/15/20 18:12 Anti-Inflamma Shock amoxicillin AdvReac Severe Vomiting Verified 11/15/20 18:12 amoxicillin trihydrate AdvReac Severe Vomiting Verified 11/15/20 18:12 [From Augmentin] potassium clavulanate AdvReac Severe Vomiting Verified 11/15/20 18:12 [From Augmentin] Home Meds: Home Meds Hydrochlorothiazide 12.5 mg PO DAILY 01/23/17 [History] Losartan [Cozaar] 50 mg PO DAILY 01/23/17 [History] Omeprazole 20 mg PO DAILY 01/23/17 [History] Cholecalciferol (Vitamin D3) [Vitamin D] 5,000 units PO DAILY 03/27/18 [History] Cetirizine [ZyrTEC] 10 mg PO DAILY PRN 10/23/19 [History] Fish Oil/[place]-3 Fatty Acids [Fish Oil 1,000 MG] 1,000 mg PO DAILY 12/03/19 [History] clindamycin HCL [Cleocin] 300 mg PO ASDIRECTED 12/03/19 [History] Cyclobenzaprine [Flexeril] 10 mg PO BID PRN 06/22/20 [History] Gabapentin [Gralise] 600 mg PO BEDTIME 06/22/20 [History] Rivaroxaban [Xarelto] 10 mg PO DAILY #30 tab 06/23/20 [Rx] oxyCODONE 5 - 10 mg PO Q6H PRN #30 tab 06/23/20 [Rx] Past Medical History HEENT History: Reports: Allergic Rhinitis, Otitis Media, Other (See Below) Other HEENT History: wears glasses, TMJ arthralgia, eustachian tube dysfunction Cardiovascular History: Reports: High Cholesterol, Hypertension, Other (See Below) Other Cardiovascular History: varicose veins, chest pain Respiratory History: Reports: Asthma Gastrointestinal History: Reports: GERD Genitourinary History: Reports: Renal Calculus, Other (See Below) Other Genitourinary History: hematuria 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 , , 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 Other DROP HAMMER SETTER UP History: Bilateral breast reduction Musculoskeletal History: Reports: Other (See Below) Other Musculoskeletal History: calcaneal spur, plantar fascial fibromatosis, rotator cuff syndrome, foot/ankle tenosynovitis Neurological History: Reports: Other (See Below) Other Neuro History: Bulging 5 and 6 discs Psychiatric History: Reports: None Endocrine/Metabolic History: Reports: Osteopenia Hematologic History: Reports: Anemia Immunologic History: Reports: None Oncologic (Cancer) History: Reports: None Dermatologic History: Reports: Other (See Below) Other Dermatologic History: actinic keratosis, skin neoplasm, nevus, viral warts, soft tissue excision - Infectious Disease History Infectious Disease History: Reports: None - Past Surgical History Head Surgeries/Procedures: Reports: None Other HEENT Surgeries/Procedures: radial keratotomy Cardiovascular Surgical History: Reports: None Respiratory Surgical History: Reports: None GI Surgical History: Reports: Colonoscopy Female Surgical History: Reports: Breast Reduction, Tubal Ligation Endocrine Surgical History: Reports: None Neurological Surgical History: Reports: None Musculoskeletal Surgical History: Reports: Joint Replacement, Shoulder Surgery, Other (See Below) Other Musculoskeletal Surgeries/Procedures:: orif R ankle with gar chau 05/11/14; R toe broken 09/2014. carpal tunnel bilateral wrist 2001. Right Shoulder replacement 03/2018. Rotator tear surgery right shoulder - 2008 Oncologic Surgical History: Reports: None Dermatological Surgical History: Reports: None Social & Family History - Family History Oncologic: Reports: Leukemia, Lung - Tobacco Use Tobacco Use Status *Q: Never Tobacco User Second Hand Smoke Exposure: Yes - Caffeine Use Caffeine Use: Reports: None - Recreational Drug Use Recreational Drug Use: No - Living Situation & Occupation Living situation: Reports: Occupation: Employed Review of Systems - Review of Systems Review Of Systems: Comprehensive ROS is negative, except as noted in HPI. ED EXAM, GENERAL - Physical Exam Exam: See Below Exam Limited By: No Limitations General Appearance: Alert, WD/WN, No Apparent Distress Respiratory/Chest: No Respiratory Distress, Lungs Clear, Normal Breath Sounds, No Accessory Muscle Use, Chest Non-Tender Cardiovascular: Normal Peripheral Pulses, Regular Rate, Rhythm, No Edema Peripheral Pulses: 2+: Radial (L), Radial (R), Dorsalis Pedis (L), Dorsalis Pedis (R) Extremities: Joint Swelling (Left knee swelling), Leg Pain (left leg pain when she lays her leg flat on the bed.). No: Redness Neurological: Alert, Oriented, Normal Cognition, No Motor/Sensory Deficits Psychiatric: Normal Affect, Normal Mood Skin Exam: Warm, Dry, Intact, Normal Color, No Rash Course - Vital Signs Last Recorded V/S: Last Vital Signs Temp 97.1 F 11/15/20 18:01 Pulse 82 11/15/20 18:01 Resp 16 11/15/20 18:01 BP 155/89 H 11/15/20 18:01 Pulse Ox 100 11/15/20 18:01 - Orders/Labs/Meds Orders: Active Orders 24 hr Category Date Time Status RAYO Bandage [Elastic Wrap] [OM.PC] Routine Oth 11/15/20 20:32 Ordered Labs: Laboratory Tests 11/15/20 11/15/20 Range/Units 19:50 19:50 WBC 5.87 (3.98-10.04) K/mm3 RBC 4.25 (3.98-5.22) M/mm3 Hgb 13.3 (11.2-15.7) gm/dl Hct 40.2 (34.1-44.9) % MCV 94.6 D (79.4-94.8) fl MCH 31.3 (25.6-32.2) pg MCHC 33.1 (32.2-35.5) g/dl RDW Std Deviation 43.6 (36.4-46.3) fL Plt Count 237 (182-369) K/mm3 MPV 8.6 L (9.4-12.3) fl Neut % (Auto) 60.2 (34.0-71.1) % Lymph % (Auto) 29.0 (19.3-51.7) % Blair % (Auto) 8.0 (4.7-12.5) % Eos % (Auto) 1.9 (0.7-5.8) Baso % (Auto) 0.7 (0.1-1.2) % Neut # (Auto) 3.54 (1.56-6.13) K/mm3 Lymph # (Auto) 1.70 (1.18-3.74) K/mm3 Blair # (Auto) 0.47 H (0.24-0.36) K/mm3 Eos # (Auto) 0.11 (0.04-0.36) K/mm3 Baso # (Auto) 0.04 (0.01-0.08) K/mm3 Sodium 143 (136-145) mEq/L Potassium 4.0 (3.5-5.1) mEq/L Chloride 106 (98-107) mEq/L Carbon Dioxide 32 (21-32) mEq/L Anion Gap 9.0 (5-15) BUN 20 H (7-18) mg/dL Creatinine 0.9 (0.55-1.02) mg/dL Est Cr Clr Drug Dosing 59.07 mL/min Estimated GFR (MDRD) > 60 (>60) mL/min BUN/Creatinine Ratio 22.2 H (14-18) Glucose 102 H (70-99) mg/dL Calcium 9.0 (8.5-10.1) mg/dL Magnesium 2.3 (1.8-2.4) mg/dL Total Bilirubin 0.2 (0.2-1.0) mg/dL AST 13 L (15-37) U/L ALT 23 (14-59) U/L Alkaline Phosphatase 97 (46-116) U/L Total Protein 7.0 (6.4-8.2) g/dl Albumin 3.2 L (3.4-5.0) g/dl Globulin 3.8 gm/dL Albumin/Globulin Ratio 0.8 L (1-2) - Re-Assessments/Exams Free Text/Narrative Re-Assessment/Exam: 11/15/20 18:29 Patient presents to the ER for the evaluation of her left leg pain and swelling. We will go ahead and get a ultrasound of the leg for evaluation, to rule out blood clot. 11/15/20 19:31 Ultrasound has been performed, and there is no sign of DVT within the left lower extremity or within the right common femoral vein, no other acute structures were identified like Cross's cyst as well. Patient states she still having pain into her left calf, I did offer to do labs to rule out electrolyte abnormalities, and she said that she would take me up on that offer at this time. 11/15/20 20:32 Laboratory evaluation is unremarkable at today's visit, we will go ahead and get the patient's leg Rayo wrapped from the calf to just above the knee to provide some hopeful pain relief, and have her follow-up with her regular care provider on Saturday at her scheduled annual physical. Departure - Departure Time of Disposition: 20:33 Disposition: Home, Self-Care 01 Condition: Good Clinical Impression: Pain of left calf - Discharge Information *PRESCRIPTION DRUG MONITORING PROGRAM REVIEWED*: No *COPY OF PRESCRIPTION DRUG MONITORING REPORT IN PATIENT RADHA: No Instructions: Muscle Strain, [id number] Referrals: Rafal Wilkerson MD [Primary Care Provider] - Forms: ED Department Discharge Additional Instructions: You have been evaluated in the ED for your left calf pain. Ultrasound demonstrated no sign of a DVT, and laboratory evaluation was unremarkable for any derangements in electrolytes. Please use ice/heat as tolerated to the affected area. Please try to elevate the affected area to relieve swelling. You may apply Rayo wrap to the area to provide some compression, or use a knee compression sleeve, and/or compression hose for your lower legs. You may take Tylenol 500 mg q6 hrs for pain relief. Please do so until you have a tolerable level of pain with activity. Do not exceed 4000mg Tylenol in a 24 hour time period. Please follow-up with your regular provider for re-evaluation at your next scheduled visit or if your injury is not feeling much better in roughly 7 to 10 days time. Please return to ED if your symptoms should change or worsen. Sepsis Event Note (ED) - Evaluation Sepsis Screening Result: No Definite Risk - Focused Exam Vital Signs: Vital Signs Temp Pulse Resp BP Pulse Ox 11/15/20 18:01 97.1 F 82 16 155/89 H 100 - My Orders Last 24 Hours: My Active Orders 11/15/20 20:32 RAYO Bandage [Elastic Wrap] [OM.PC] Routine - Assessment/Plan Last 24 Hours: My Active Orders 11/15/20 20:32 RAYO Bandage [Elastic Wrap] [OM.PC] Routine
--- NOTE | 2020-11-15 19:10 | US ---
Left lower extremity deep venous ultrasound: Duplex and color Doppler evaluation was obtained of the left common femoral, proximal greater saphenous, superficial femoral, popliteal, posterior tibial and peroneal veins. Right common femoral vein was also evaluated. Comparison: No prior venous imaging is available. Findings: Normal phasic flow, augmentation and compression is seen. Impression: 1. No findings of deep venous thrombosis within the left lower extremity or within the right common femoral vein. Diagnostic code #1
== END 2020-11-15 20:42 | disposition home or self-care (01) ==
LOC: JD.ED 17:53
DX: M79.662 Pain in left lower leg (principal); I10 Essential (primary) hypertension; J45.909 Unspecified asthma, uncomplicated; K21.9 Gastro-esophageal reflux disease without esophagitis; E78.00 Pure hypercholesterolemia, unspecified; D64.9 Anemia, unspecified; Z77.22 Contact with and (suspected) exposure to environmental tobacco smoke (acute) (chronic); Z88.6 Allergy status to analgesic agent; Z88.0 Allergy status to penicillin; Z88.1 Allergy status to other antibiotic agents; Z79.899 Other long term (current) drug therapy; Z79.01 Long term (current) use of anticoagulants
CPT/HCPCS: 36415; 80053; 83735; 85025; 93971-26-LT; 93971-LT; 99283; 99284-25

== ENCOUNTER 2022-05-07 08:21 | Day surgery (SDC) | payer BC ==
[~2022-05-07 08:21] MED LIST changes: +Acetaminophen 325 MG Tab PO SCH; +Dexmedetomidine 200 MCG/2 ML SDV ONE; -EPINEPHrine 1 MG/ML 30 ML MDV IRR SCH; +Lidocaine 1% 5 ML VIAL ONE; +Midazolam 1 MG/ML 2 ML SDV ONE; +Morphine 8 MG, EPINEPHrine 0.3 MG, Cefuroxime 750 MG, Sodium Chloride 0.9% 7.9 ML PRN; +Ondansetron 4 MG/2 ML SDV ONE; +Pregabalin 25 MG Cap PO SCH; +Propofol 200 MG/20 ML SDV ONE; +Sodium Chloride 0.9% 10 ML Syringe FLUSH SCH; +fentaNYL 100 MCG/2 ML SDV ONE; +oxyCODONE ER 10 MG TAB.ER PO SCH
[2022-05-07] MEDS ORDERED: Ropivacaine 0.5% 5 MG/ML 30 ML SDV ONE (08:43)
[2022-05-07] MEDS ORDERED: EPINEPHrine 1 MG/ML SDV ONE (08:43)
[2022-05-07] MEDS ORDERED: oxyCODONE ER 10 MG TAB.ER PO SCH (08:45)
[2022-05-07] MEDS ORDERED: Acetaminophen 325 MG Tab PO SCH (08:45)
[2022-05-07] MEDS ORDERED: Pregabalin 25 MG Cap PO SCH (08:45)
[2022-05-07] MEDS ORDERED: Tranexamic Acid 1,000 MG/10 ML Vial ONE (09:04)
[2022-05-07] MEDS ORDERED: Vancomycin 1 GM SDV ONE (09:04)
[2022-05-07] MEDS ORDERED: ceFAZolin 2 GM Vial ONE (09:18)
[2022-05-07] MEDS ORDERED: Dexamethasone 4 MG/ML 5 ML MDV ONE (10:21)
[2022-05-07] MEDS ORDERED: Phenylephrine HCl In 0.9% NaCl 1 MG/10 ML Vial ONE (10:24)
[2022-05-07] MEDS ORDERED: Lactated Ringers 1,000 ML ONE ×2 (10:28→11:04)
[2022-05-07] MEDS ORDERED: HYDROmorphone 0.5 MG/0.5 ML Syringe IVPUSH PRN (10:40)
[2022-05-07] MEDS ORDERED: fentaNYL 100 MCG/2 ML SDV IVPUSH PRN (10:40)
[2022-05-07] MEDS ORDERED: Ondansetron 4 MG/2 ML SDV IVPUSH PRN (10:40)
[2022-05-07] MEDS ORDERED: Propofol 200 MG/20 ML SDV ONE (11:08)
[2022-05-07] MEDS ORDERED: oxyCODONE 5 MG Tab PO SCH (13:15)
[2022-05-07] MEDS ORDERED: fentaNYL 100 MCG/2 ML SDV IVPUSH SCH (14:12)
[2022-05-07] MEDS ORDERED: fentaNYL 100 MCG/2 ML SDV ONE (14:18)
[2022-05-07 17:37] VITALS: BP 110/68; PULSE 82
== END 2022-05-07 15:55 | disposition home or self-care (01) ==
LOC: JD.SDS 08:21
PROVIDERS: ATTEND Orthopaedic Surgery
DX: M17.11 Unilateral primary osteoarthritis, right knee (principal); I10 Essential (primary) hypertension; E78.5 Hyperlipidemia, unspecified; J45.909 Unspecified asthma, uncomplicated; K21.9 Gastro-esophageal reflux disease without esophagitis; Z79.899 Other long term (current) drug therapy; Z88.0 Allergy status to penicillin; Z88.6 Allergy status to analgesic agent; Z91.048 Other nonmedicinal substance allergy status; Z98.890 Other specified postprocedural states; M85.80 Other specified disorders of bone density and structure, unspecified site; D64.9 Anemia, unspecified
CPT/HCPCS: 0055T; 27447; 64447; 73560; 97116; 97161; A9270; C1713; C1776; J0171; J0690; J0697; J1100; J1170; J2250; J2270; J2405; J2704; J2795; J3010; J3370; J7120; 01402; 64450; J3490

== ENCOUNTER 2022-06-22 06:55 | Day surgery (SDC) | payer BC ==
[2022-06-22] MEDS ORDERED: Sodium Chloride 0.9% 10 ML Syringe FLUSH PRN (07:18)
[2022-06-22] MEDS ORDERED: Lidocaine 1%/Sod Bicarbonate in NS 8.4% 1 ML Syringe IDERM PRN (07:18)
[2022-06-22] MEDS ORDERED: Bupivacaine 0.25% 10 ML SDV ONE (07:30)
[2022-06-22] MEDS ORDERED: Lactated Ringers 1,000 ML IV SCH (07:30)
[2022-06-22] MEDS ORDERED: Triamcinolone Acetonide 40 MG/ML 1 ML SDV ONE (07:30)
[2022-06-22] MEDS ORDERED: Ropivacaine 0.5% 5 MG/ML 30 ML SDV ONE (07:45)
[2022-06-22] MEDS ORDERED: Dexamethasone 4 MG/ML 5 ML MDV ONE (07:47)
[2022-06-22] MEDS ORDERED: Midazolam 1 MG/ML 2 ML SDV ONE (07:53)
[2022-06-22] MEDS ORDERED: Propofol 200 MG/20 ML SDV ONE (08:05)
[2022-06-22] MEDS ORDERED: fentaNYL 100 MCG/2 ML SDV ONE (08:06)
[2022-06-22] MEDS ORDERED: Lidocaine 1% 2 ML ONE (08:08)
[2022-06-22] MEDS ORDERED: Midazolam 1 MG/ML 2 ML SDV IVPUSH STA (08:15)
[2022-06-22] MEDS ORDERED: Ondansetron 4 MG/2 ML SDV IVPUSH PRN (08:39)
[2022-06-22] MEDS ORDERED: fentaNYL 100 MCG/2 ML SDV IVPUSH PRN (08:39)
[2022-06-22] MEDS ORDERED: HYDROmorphone 0.5 MG/0.5 ML Syringe IVPUSH PRN (08:39)
[2022-06-22] MEDS ORDERED: HYDROmorphone 0.5 MG/0.5 ML Syringe ONE (08:49)
[2022-06-22] MEDS ORDERED: Sodium Chloride 0.9% 10 ML Syringe FLUSH SCH (09:00)
[2022-06-22] MEDS ORDERED: oxyCODONE 5 MG Tab PO SCH (09:04)
[2022-06-22 09:45] VITALS: BP 138/77; PULSE 79
== END 2022-06-22 10:12 | disposition home or self-care (01) ==
LOC: JD.SDS 06:55
PROVIDERS: ATTEND Orthopaedic Surgery
DX: T84.82XA Fibrosis due to internal orthopedic prosthetic devices, implants and grafts, initial encounter (principal); M72.2 Plantar fascial fibromatosis; D64.9 Anemia, unspecified; J45.909 Unspecified asthma, uncomplicated; I10 Essential (primary) hypertension; E78.00 Pure hypercholesterolemia, unspecified; K21.9 Gastro-esophageal reflux disease without esophagitis; M85.80 Other specified disorders of bone density and structure, unspecified site; Z96.651 Presence of right artificial knee joint; Z98.890 Other specified postprocedural states; Z79.899 Other long term (current) drug therapy; Z88.0 Allergy status to penicillin; Z88.1 Allergy status to other antibiotic agents
CPT/HCPCS: 20610; 27599; 64447; A9270; J1100; J1170; J2704; J2795; J3010; J3301; J3490; J7120

== ENCOUNTER 2022-09-12 06:31 | Day surgery (SDC) | payer BC ==
[~2022-09-12 06:31] MED LIST changes: -Acetaminophen 325 MG Tab PO SCH; -Dexmedetomidine 200 MCG/2 ML SDV ONE; +EPINEPHrine 1 MG/ML 30 ML MDV IRR SCH; -Lactated Ringers 1,000 ML IV SCH; -Lidocaine 1% 5 ML VIAL ONE; -Lidocaine 1%/Sod Bicarbonate in NS 8.4% 1 ML Syringe IDERM PRN; -Midazolam 1 MG/ML 2 ML SDV ONE; -Morphine 8 MG, EPINEPHrine 0.3 MG, Cefuroxime 750 MG, Sodium Chloride 0.9% 7.9 ML PRN; -Ondansetron 4 MG/2 ML SDV ONE; -Pregabalin 25 MG Cap PO SCH; -Propofol 200 MG/20 ML SDV ONE; -Sodium Chloride 0.9% 10 ML Syringe FLUSH PRN; -Sodium Chloride 0.9% 10 ML Syringe FLUSH SCH; -fentaNYL 100 MCG/2 ML SDV ONE; -oxyCODONE ER 10 MG TAB.ER PO SCH
[2022-09-12] MEDS ORDERED: Lidocaine 1% 2 ML ONE (06:52)
[2022-09-12] MEDS ORDERED: ceFAZolin 2 GM Vial ONE (06:52)
[2022-09-12] MEDS ORDERED: Ondansetron 4 MG/2 ML SDV ONE (06:52)
[2022-09-12] MEDS ORDERED: fentaNYL 100 MCG/2 ML SDV ONE (06:52)
[2022-09-12] MEDS ORDERED: Propofol 200 MG/20 ML SDV ONE (06:52)
[2022-09-12] MEDS ORDERED: Midazolam 1 MG/ML 2 ML SDV ONE (06:53)
[2022-09-12] MEDS ORDERED: Ropivacaine 0.5% 5 MG/ML 30 ML SDV ONE (06:57)
[2022-09-12] MEDS ORDERED: EPINEPHrine 1 MG/ML SDV ONE (06:57)
[2022-09-12] MEDS ORDERED: Lactated Ringers 1,000 ML IV SCH (07:15)
[2022-09-12] MEDS ORDERED: Ketorolac 30 MG/ML SDV ONE (07:26)
[2022-09-12] MEDS ORDERED: ePHEDrine 50 MG/ML SDV ONE (07:36)
[2022-09-12] MEDS ORDERED: oxyCODONE 5 MG Tab PO PRN (08:49)
[2022-09-12 10:09] VITALS: BP 131/90; PULSE 71
== END 2022-09-12 10:10 | disposition home or self-care (01) ==
LOC: JD.SDS 06:31
PROVIDERS: ATTEND Orthopaedic Surgery
DX: T84.82XD Fibrosis due to internal orthopedic prosthetic devices, implants and grafts, subsequent encounter (principal); D64.9 Anemia, unspecified; I10 Essential (primary) hypertension; K21.9 Gastro-esophageal reflux disease without esophagitis; J45.909 Unspecified asthma, uncomplicated; E78.00 Pure hypercholesterolemia, unspecified; Z98.890 Other specified postprocedural states; Z79.899 Other long term (current) drug therapy; Z96.651 Presence of right artificial knee joint
CPT/HCPCS: 29875; 64447; A9270; J0171; J0690; J1885; J2250; J2405; J2704; J2795; J3010; J7120; 01400; J3490

== ENCOUNTER 2023-08-07 08:00 | Day surgery (SDC) | payer BC ==
[~2023-08-07 08:00] MED LIST changes: -EPINEPHrine 1 MG/ML 30 ML MDV IRR SCH; +Sodium Chloride 0.9% 10 ML Syringe FLUSH PRN; +Sodium Chloride 0.9% 10 ML Syringe FLUSH SCH
[2023-08-07] MEDS: Lactated Ringers 1,000 ML IV SCH (08:20)
[2023-08-07] MEDS ORDERED: Propofol 200 MG/20 ML SDV ONE (09:56)
[2023-08-07] MEDS ORDERED: fentaNYL 250 MCG/5 ML SDV ONE (09:57)
[2023-08-07] MEDS ORDERED: Midazolam 1 MG/ML 2 ML SDV ONE (09:57)
[2023-08-07] MEDS ORDERED: ceFAZolin 2 GM Vial ONE (10:05)
[2023-08-07] MEDS ORDERED: Dexamethasone 4 MG/ML 5 ML MDV ONE (10:05)
[2023-08-07] MEDS ORDERED: Lidocaine 1% 5 ML VIAL ONE (10:05)
[2023-08-07] MEDS ORDERED: Ondansetron 4 MG/2 ML SDV ONE (10:05)
[2023-08-07] MEDS: Bupivacaine 0.25% 10 ML SDV ONE (11:20)
[2023-08-07] MEDS ORDERED: Ropivacaine 0.5% 5 MG/ML 30 ML SDV ONE (12:12)
[2023-08-07] MEDS: Acetaminophen 325 MG Tab PO ONE (12:59)
[2023-08-07 14:09] VITALS: BP 121/87; PULSE 87
== END 2023-08-07 14:45 | disposition home or self-care (01) ==
LOC: JD.SDS 08:00
PROVIDERS: ATTEND Orthopaedic Surgery
DX: M13.842 Other specified arthritis, left hand (principal); I10 Essential (primary) hypertension; K21.9 Gastro-esophageal reflux disease without esophagitis; E78.5 Hyperlipidemia, unspecified; J45.909 Unspecified asthma, uncomplicated; E55.9 Vitamin D deficiency, unspecified; Z79.899 Other long term (current) drug therapy; Z88.0 Allergy status to penicillin; Z88.6 Allergy status to analgesic agent
CPT/HCPCS: 25445; 76000; A9270; C1713; J0690; J1100; J2250; J2405; J2704; J2795; J3010; J3490; J7120; 01830; 64415